=== PATIENT | male | born 1980 | race Caucasian/White ===

== ENCOUNTER 2020-06-15 18:30 | Emergency (ER) | payer SELFPAY ==
[2020-06-15] MEDS ORDERED: MVI, Adult with Vitamin K 10 ML, Folic Acid 1 MG, Thiamine 100 MG in Lactated Ringers 1... IV ONE ×4 (18:58)
[2020-06-15] MEDS ORDERED: Pantoprazole 40 MG Vial IVPUSH ONE (19:02)
--- NOTE | 2020-06-15 19:03 | EDM.PDOC ---
ED HPI GENERAL MEDICAL PROBLEM - General Chief Complaint: General Stated Complaint: BLOOD IN THROAT/DIZZY Time Seen by Provider: 06/15/20 19:01 Source of Information: Reports: Patient, Family History Limitations: Reports: No Limitations - History of Present Illness INITIAL COMMENTS - FREE TEXT/NARRATIVE: been coughing up blood and been drinking daily past 5 months. Lower Abdomen Pain Score (Numeric/FACES): 6 - Related Data Allergies Allergy/AdvReac Type Severity Reaction Status Date / Time No Known Allergies Allergy Verified 06/15/20 19:32 Home Meds: Home Meds . [No Known Home Meds] 06/15/20 [History] ED ROS GENERAL - Review of Systems Review Of Systems: Comprehensive ROS is negative, except as noted in HPI. ED EXAM, GENERAL - Physical Exam Exam: See Below Exam Limited By: No Limitations General Appearance: Alert, WD/WN, Mild Distress, Other (upset) Ears: Hearing Grossly Normal Throat/Mouth: Normal Voice, No Airway Compromise Head: Atraumatic Neck: Non-Tender, Full Range of Motion Respiratory/Chest: No Respiratory Distress Cardiovascular: Regular Rate, Rhythm GI/Abdominal: Soft, Non-Tender Neurological: Alert, Oriented, Normal Cognition, Normal Gait, No Motor/Sensory Deficits Psychiatric: Flat Affect Skin Exam: Warm, Dry, Normal Color Lymphatic: No Adenopathy Course - Vital Signs Last Recorded V/S: Last Vital Signs Temp 36.6 C 06/15/20 18:50 Pulse 87 06/15/20 18:50 Resp 19 06/15/20 18:50 BP 154/81 H 06/15/20 18:50 Pulse Ox 98 06/15/20 18:50 - Orders/Labs/Meds Orders: Active Orders 24 hr Category Date Time Status MVI, Adult with Vitamin K [Infuvite Adult] 10 ml Med 06/15/20 18:58 Active Folic Acid 1 mg Thiamine [Vitamin B-1] 100 mg Lactated Ringers [Ringers, Lactated] 1,000 ml IV ONETIME Medication Orders Multivitamins/Minerals 10 ml/Folic Acid 1 mg/ Thiamine HCl 100 mg/ Lactated Ringer's 1,011.2 mls @ 999 mls/hr IV ONETIME ONE Stop: 06/15/20 19:58 Last Admin: 06/15/20 19:13 Dose: 999 mls/hr Documented by: ALTA Labs: Laboratory Tests 06/15/20 06/15/20 Range/Units 18:57 18:57 WBC 7.5 (5.0-10.0) 10^3/uL RBC 4.43 L (4.6-6.2) 10^6/uL Hgb 14.3 (14.0-18.0) g/dL Hct 41.3 (40.0-54.0) % MCV 93.2 (80-100) fL MCH 32.3 (27.0-34.0) pg MCHC 34.6 (33.0-35.0) g/dL Plt Count 110 L (150-450) 10^3/uL Neut % (Auto) 64.1 (42.2-75.2) % Lymph % (Auto) 15.7 L (20.5-50.1) % [place] % (Auto) 16.1 H (2-8) % Eos % (Auto) 3.2 H (1.0-3.0) % Baso % (Auto) 0.9 (0.0-1.0) % Sodium 135 L (136-145) mmol/L Potassium 3.0 L (3.5-5.1) mmol/L Chloride 97 L (98-107) mmol/L Carbon Dioxide 33 H (21-32) mmol/L Anion Gap 8.0 (7-13) mEq/L BUN 6 L (7-18) mg/dL Creatinine 0.62 L (0.70-1.30) mg/dL Est Cr Clr Drug Dosing TNP Estimated GFR (MDRD) > 60 BUN/Creatinine Ratio 9.7 (No establ ref range) Glucose 121 H (74-99) mg/dL Calcium 8.3 L (8.5-10.1) mg/dL Total Bilirubin 2.1 H (0.2-1.0) mg/dL AST 221 H (15-37) U/L ALT 115 H (16-63) U/L Alkaline Phosphatase 192 H (46-116) U/L Total Protein 8.0 (6.4-8.2) g/dL Albumin 3.2 L (3.4-5.0) g/dL Globulin 4.8 Albumin/Globulin Ratio 0.67 Ethyl Alcohol < 3 (0) mg/dL Meds: Medications Generic Name Dose Route Start Last Admin Trade Name Freq PRN Reason Stop Dose Admin Multivitamins/Minerals 10 ml/ 1,011.2 mls @ 999 mls/hr 06/15/20 18:58 06/15/20 19:13 Folic Acid 1 mg/ Thiamine HCl IV 06/15/20 19:58 999 mls/hr 100 mg/ Lactated Ringer's ONETIME ONE Administration Discontinued Medications Generic Name Dose Route Start Last Admin Trade Name Twin PRN Reason Stop Dose Admin Pantoprazole Sodium 40 mg 06/15/20 19:02 06/15/20 19:10 Protonix Iv IVPUSH 06/15/20 19:03 40 mg ONETIME ONE Administration - Re-Assessments/Exams Free Text/Narrative Re-Assessment/Exam: 06/15/20 19:51 results discussed with pt and brother. pt feels good now. Departure - Departure Time of Disposition: 19:52 Disposition: Home, Self-Care 01 Condition: Good Clinical Impression: Alcoholic liver disease, unspecified, Hep C w/o coma, chronic, Alcohol abuse, Elevated LFTs - Discharge Information Instructions: Alcoholic Liver Disease, [id number] Forms: ED Department Discharge Additional Instructions: 1) avoid alcohol 2) follow up with clinic or seek treatment 3) recheck as needed Sepsis Event Note (ED) - Focused Exam Vital Signs: Vital Signs Temp Pulse Resp BP Pulse Ox 06/15/20 18:50 36.6 C 87 19 154/81 H 98 - My Orders Last 24 Hours: My Active Orders 06/15/20 18:58 MVI, Adult with Vitamin K [Infuvite Adult] 10 ml Folic Acid 1 mg Thiamine [Vitamin B-1] 100 mg Lactated Ringers [Ringers, Lactated] 1,000 ml IV ONETIME - Assessment/Plan Last 24 Hours: My Active Orders 06/15/20 18:58 MVI, Adult with Vitamin K [Infuvite Adult] 10 ml Folic Acid 1 mg Thiamine [Vitamin B-1] 100 mg Lactated Ringers [Ringers, Lactated] 1,000 ml IV ONETIME
[2020-06-15 19:25] LABS: CHLORIDE,CL 97 mmol/L (98-107); SODIUM,NA 135 mmol/L (136-145)
== END 2020-06-15 19:58 | disposition home or self-care (01) ==
LOC: DL.ED 18:30
DX: K70.9 Alcoholic liver disease, unspecified (principal); F10.10 Alcohol abuse, uncomplicated; B18.2 Chronic viral hepatitis C; R79.89 Other specified abnormal findings of blood chemistry
CPT/HCPCS: 36415; 80053; 80307; 85025; 96365; 96375; 99284; C9113; J3411; J7120; 99283; J3490

== ENCOUNTER 2020-07-13 12:04 | Observation (INO) | payer SELFPAY ==
--- NOTE | 2020-07-13 12:03 | EDM.PDOC ---
ED [facility] GENERAL MEDICAL PROBLEM - General Stated Complaint: [id number] MED CLEARENCE Time Seen by Provider: 07/13/20 11:45 Source of Information: Reports: Patient, Family (brother) History Limitations: Reports: Altered Mental Status, Intoxication (self admission) - History of Present Illness INITIAL COMMENTS - FREE TEXT/NARRATIVE: This 40 yo male patient was brought to the ED by his brother due to excessive drinking. The patient does not know when the last day that he did not drink alcohol. The patient also admits to using drugs. The patient was actually seen by the [facility] [place] and referred to the ED for medical clearance. Onset: Unknown/Unsure Duration: Constant Location: Reports: Generalized Quality: Reports: Other Severity: Severe Improves with: Reports: None Worsens with: Reports: None Context: Reports: Other Associated Symptoms: Reports: No Other Symptoms Abdominal Pain Score (Numeric/FACES): 10 - Related Data Allergies Allergy/AdvReac Type Severity Reaction Status Date / Time No Known Allergies Allergy Verified 07/13/20 12:10 Home Meds: Home Meds . [No Known Home Meds] 06/15/20 [History] Social & Family History - Caffeine Use Caffeine Use: Reports: Energy Drinks ED ROS GENERAL - Review of Systems Review Of Systems: Comprehensive ROS is negative, except as noted in HPI. ED EXAM, GENERAL - Physical Exam Exam: See Below Exam Limited By: Intoxication General Appearance: Alert, WD/WN, Moderate Distress Eye Exam: Bilateral Eye: EOMI, Normal Inspection, PERRL Ears: Normal External Exam, Normal Canal, Hearing Grossly Normal, Normal TMs Nose: Normal Inspection, Normal Mucosa, No Blood Throat/Mouth: Normal Teeth, Normal Gums, Normal Oropharynx, Normal Voice, No Airway Compromise, Other (healing wound to the inside of his lower lip) Head: Other (contusion to the left eye due to a fall within the past week) Neck: Normal Inspection, Supple, Non-Tender, Full Range of Motion Respiratory/Chest: No Respiratory Distress, Lungs Clear, Normal Breath Sounds, No Accessory Muscle Use, Chest Non-Tender Cardiovascular: Normal Peripheral Pulses, Regular Rate, Rhythm, No Edema, No Gallop, No JVD, No Murmur, No Rub GI/Abdominal: Normal Bowel Sounds, Soft, Non-Tender, No Organomegaly, No Distention, No Abnormal Bruit, No Mass (Male) Exam: Deferred Rectal (Males) Exam: Deferred Back Exam: Normal Inspection, Full Range of Motion, NT Extremities: Normal Inspection, Normal Range of Motion, Non-Tender, Normal Capillary Refill, No Pedal Edema Neurological: Alert, CN II-XII Intact, Normal Gait, Disoriented Psychiatric: Depressed Mood, Flat Affect, Tearful Skin Exam: Warm, Dry, Intact, Normal Color, No Rash Lymphatic: No Adenopathy Course - Vital Signs Last Recorded V/S: Last Vital Signs Temp 36.8 C 07/13/20 12:02 Pulse 104 H 07/13/20 12:02 Resp 20 07/13/20 12:02 BP 140/96 H 07/13/20 12:02 Pulse Ox 98 07/13/20 12:02 - Orders/Labs/Meds Orders: Active Orders 24 hr Category Date Time Status Admission Diagnosis [ADT] Urgent ADT 07/13/20 13:18 Ordered Admission Status [Patient Status] [ADT] Routine ADT 07/13/20 13:18 Ordered Labs: Laboratory Tests 07/13/20 07/13/20 07/13/20 Range/Units 12:14 12:14 12:14 WBC 10.8 H (5.0-10.0) 10^3/uL RBC 4.30 L (4.6-6.2) 10^6/uL Hgb 13.7 L (14.0-18.0) g/dL Hct 41.1 (40.0-54.0) % MCV 95.6 (80-100) fL MCH 31.9 (27.0-34.0) pg MCHC 33.3 (33.0-35.0) g/dL Plt Count 187 D (150-450) 10^3/uL Neut % (Auto) 70.2 (42.2-75.2) % Lymph % (Auto) 13.1 L (20.5-50.1) % [place] % (Auto) 7.9 (2-8) % Eos % (Auto) 7.0 H (1.0-3.0) % Baso % (Auto) 1.8 H (0.0-1.0) % Add Manual Diff Yes Neutrophils % (Manual) 68 (42-75) % Band Neutrophils % 1 % Lymphocytes % (Manual) 18 L (20-50) % Monocytes % (Manual) 5 (2-8) % Eosinophils % (Manual) 7 H (1-3) % Basophils % (Manual) 1 Sodium 142 (136-145) mmol/L Potassium 3.2 L (3.5-5.1) mmol/L Chloride 106 (98-107) mmol/L Carbon Dioxide 28 (21-32) mmol/L Anion Gap 11.2 (7-13) mEq/L BUN 5 L (7-18) mg/dL Creatinine 0.68 L (0.70-1.30) mg/dL Est Cr Clr Drug Dosing 156.88 mL/min Estimated GFR (MDRD) > 60 BUN/Creatinine Ratio 7.4 (No establ ref range) Glucose 153 H (74-99) mg/dL Calcium 7.2 L (8.5-10.1) mg/dL Magnesium 1.6 L (1.8-2.4) mg/dL Total Bilirubin 0.7 (0.2-1.0) mg/dL AST 307 H (15-37) U/L ALT 153 H (16-63) U/L Alkaline Phosphatase 207 H (46-116) U/L Ammonia 50 H (11-32) umol/L Total Protein 7.5 (6.4-8.2) g/dL Albumin 2.6 L (3.4-5.0) g/dL Globulin 4.9 Albumin/Globulin Ratio 0.53 Amylase 60 (25-115) U/L Lipase 518 H (73-393) U/L Urine Color (YELLOW) Urine Appearance (CLEAR) Urine pH (5.0-9.0) Ur Specific [place] (1.005-1.030) Urine Protein (NEGATIVE) Urine Glucose (UA) (NEGATIVE) Urine Ketones (NEGATIVE) Urine Occult Blood (NEGATIVE) Urine Nitrite (NEGATIVE) Urine Bilirubin (NEGATIVE) Urine Urobilinogen (0.2-1.0) mg/dL Ur Leukocyte Esterase (NEGATIVE) Urine Opiates Screen (NEGATIVE) Ur Oxycodone Screen (NEGATIVE) Urine Methadone Screen (NEGATIVE) Acetaminophen 0 L (10-30 (Therapeutic)) ug/mL Ur Barbiturates Screen (NEGATIVE) U Tricyclic Antidepress (NEGATIVE) Ur Phencyclidine Scrn (NEGATIVE) Ur Amphetamine Screen (NEGATIVE) U Methamphetamines Scrn (NEGATIVE) Urine MDMA Screen (NEGATIVE) U Benzodiazepines Scrn (NEGATIVE) Urine Cocaine Screen (NEGATIVE) U Marijuana (THC) Screen (NEGATIVE) Ethyl Alcohol 298 (0) mg/dL 07/13/20 07/13/20 Range/Units 12:21 12:21 WBC (5.0-10.0) 10^3/uL RBC (4.6-6.2) 10^6/uL Hgb (14.0-18.0) g/dL Hct (40.0-54.0) % MCV (80-100) fL MCH (27.0-34.0) pg MCHC (33.0-35.0) g/dL Plt Count (150-450) 10^3/uL Neut % (Auto) (42.2-75.2) % Lymph % (Auto) (20.5-50.1) % [place] % (Auto) (2-8) % Eos % (Auto) (1.0-3.0) % Baso % (Auto) (0.0-1.0) % Add Manual Diff Neutrophils % (Manual) (42-75) % Band Neutrophils % % Lymphocytes % (Manual) (20-50) % Monocytes % (Manual) (2-8) % Eosinophils % (Manual) (1-3) % Basophils % (Manual) Sodium (136-145) mmol/L Potassium (3.5-5.1) mmol/L Chloride (98-107) mmol/L Carbon Dioxide (21-32) mmol/L Anion Gap (7-13) mEq/L BUN (7-18) mg/dL Creatinine (0.70-1.30) mg/dL Est Cr Clr Drug Dosing mL/min Estimated GFR (MDRD) BUN/Creatinine Ratio (No establ ref range) Glucose (74-99) mg/dL Calcium (8.5-10.1) mg/dL Magnesium (1.8-2.4) mg/dL Total Bilirubin (0.2-1.0) mg/dL AST (15-37) U/L ALT (16-63) U/L Alkaline Phosphatase (46-116) U/L Ammonia (11-32) umol/L Total Protein (6.4-8.2) g/dL Albumin (3.4-5.0) g/dL Globulin Albumin/Globulin Ratio Amylase (25-115) U/L Lipase (73-393) U/L Urine Color Yellow (YELLOW) Urine Appearance Clear (CLEAR) Urine pH 6.5 (5.0-9.0) Ur Specific [place] >= 1.030 (1.005-1.030) Urine Protein Negative (NEGATIVE) Urine Glucose (UA) Negative (NEGATIVE) Urine Ketones Negative (NEGATIVE) Urine Occult Blood Negative (NEGATIVE) Urine Nitrite Negative (NEGATIVE) Urine Bilirubin Negative (NEGATIVE) Urine Urobilinogen 2.0 H (0.2-1.0) mg/dL Ur Leukocyte Esterase Negative (NEGATIVE) Urine Opiates Screen Negative (NEGATIVE) Ur Oxycodone Screen Negative (NEGATIVE) Urine Methadone Screen Negative (NEGATIVE) Acetaminophen (10-30 (Therapeutic)) ug/mL Ur Barbiturates Screen Negative (NEGATIVE) U Tricyclic Antidepress Negative (NEGATIVE) Ur Phencyclidine Scrn Negative (NEGATIVE) Ur Amphetamine Screen Negative (NEGATIVE) U Methamphetamines Scrn Positive H (NEGATIVE) Urine MDMA Screen Negative (NEGATIVE) U Benzodiazepines Scrn Negative (NEGATIVE) Urine Cocaine Screen Negative (NEGATIVE) U Marijuana (THC) Screen Positive H (NEGATIVE) Ethyl Alcohol (0) mg/dL Departure - Departure Time of Disposition: 13:22 Disposition: Refer to Observation Clinical Impression: Alcohol abuse, Alcoholic liver disease, unspecified - Discharge Information *PRESCRIPTION DRUG MONITORING PROGRAM REVIEWED*: No *COPY OF PRESCRIPTION DRUG MONITORING REPORT IN PATIENT JUSTA: No Care Plan Goals: Discussed the patient's history, examination and lab results with Dr. Lopez. Dr. Lopez accepted the patient for continued evaluation and management as an observation patient at [facility] in [place]. Rosa Isela Heydi ([employer] [place]) agreed to come to the hospital tomorrow for further evaluation and treatment. Sepsis Event Note (ED) - Focused Exam Vital Signs: Vital Signs Temp Pulse Resp BP Pulse Ox 07/13/20 12:02 36.8 C 104 H 20 140/96 H 98 - My Orders Last 24 Hours: My Active Orders 07/13/20 13:18 Admission Diagnosis [ADT] Urgent Admission Status [Patient Status] [ADT] Routine - Assessment/Plan Last 24 Hours: My Active Orders 07/13/20 13:18 Admission Diagnosis [ADT] Urgent Admission Status [Patient Status] [ADT] Routine
[2020-07-13 12:43] LABS: ANION GAP 11.2 mEq/L (7-13); CHLORIDE,CL 106 mmol/L (98-107); SODIUM,NA 142 mmol/L (136-145)
[2020-07-13 12:52] LABS: ACETAMINOPHEN 0 ug/mL (10-30 (Therapeutic))
[2020-07-13] MEDS ORDERED: Ondansetron 4 MG/2 ML SDV IVPUSH PRN (13:57)
[2020-07-13] MEDS ORDERED: oxyCODONE 5 MG Tab PO PRN (13:57)
[2020-07-13] MEDS ORDERED: Acetaminophen 325 MG Tab PO PRN (13:57)
[2020-07-13] MEDS ORDERED: Sodium Chloride 0.9% 10 ML Syringe FLUSH PRN (13:57)
[2020-07-13] MEDS ORDERED: Flumazenil 0.1 MG/ML 5 ML MDV IVPUSH PRN (14:00)
[2020-07-13] MEDS ORDERED: LORazepam 2 MG/ML SDV IVPUSH PRN (14:00)
[2020-07-13] MEDS ORDERED: NS + KCl 20mEq/L 1,000 ML IV SCH (14:00)
--- NOTE | 2020-07-13 14:25 | PCM.HP ---
H&P History of Present Illness - General Date of Service: 07/13/20 Admit Problem/Dx: Admission Diagnosis/Problem Admission Diagnosis/Problem Alcohol abuse Source of Information: Patient, Provider - History of Present Illness Initial Comments - Free Text/Narative: 40-year-old with a history of hepatitis C, heavy alcohol use, IV drug use with amphetamine, marijuana use. As he has been drinking heavily, drinking 99 proof alcohol about a liter and a half daily. On the day of admission the patient underwent and requested alcohol treatment. He was referred to the emergency room for evaluation. He was noted to have high alcohol level. He says he has had diarrhea in the past few days. Multiple loose bowel movements associated with abdominal distention and moderate pain. No associated nausea or vomiting. No chest pain, no shortness of breath, no known COVID-19 exposure Abdominal Pain Score (Numeric/FACES): 10 - Related Data Allergies/Adverse Reactions: Allergies Allergy/AdvReac Type Severity Reaction Status Date / Time No Known Allergies Allergy Verified 07/13/20 12:10 Home Medications: Home Meds . [No Known Home Meds] 06/15/20 [History] Past Medical History HEENT History: Reports: None, Hard of Hearing Other HEENT History: left ear infection bad Cardiovascular History: Reports: None, Hypertension Respiratory History: Reports: None Gastrointestinal History: Reports: None Genitourinary History: Reports: None Musculoskeletal History: Reports: Arthritis Neurological History: Reports: None Psychiatric History: Reports: ADD, ADHD, Addiction, Bipolar, Depression, Learning Disability Endocrine/Metabolic History: Reports: None Hematologic History: Reports: None Immunologic History: Reports: None Oncologic (Cancer) History: Reports: None Dermatologic History: Reports: None - Infectious Disease History Infectious Disease History: Reports: Chicken Pox, Hepatitis C - Past Surgical History Head Surgeries/Procedures: Reports: None Social & Family History - Tobacco Use Smoking Status *Q: Current Every Day Smoker Years of Tobacco use: 20 Packs/Tins Daily: 3 Second Hand Smoke Exposure: No - Caffeine Use Caffeine Use: Reports: Energy Drinks - Recreational Drug Use Recreational Drug Use: Yes Recreational Drug Type: Reports: Marijuana/Hashish, Methamphetamine H&P Review of Systems - Review of Systems: Review Of Systems: See Below General: Denies: Fever Pulmonary: Denies: Shortness of Breath Cardiovascular: Denies: Chest Pain, Edema Gastrointestinal: Reports: Abdominal Pain, Diarrhea, Distension. Denies: Black Stool, Bloody Stool Psychiatric: Denies: Confusion Neurological: Denies: Dizziness Exam - Exam Exam: See Below - Vital Signs Vital Signs: Last Vital Signs Temp 98.4 F 07/13/20 13:57 Pulse 75 07/13/20 13:57 Resp 20 07/13/20 13:57 BP 153/95 H 07/13/20 13:57 Pulse Ox 99 07/13/20 13:57 Weight: 169 lb 9.6 oz - Exam General: Alert, Oriented Neck: Supple Lungs: Clear to Auscultation, Normal Respiratory Effort Cardiovascular: Regular Rate, Regular Rhythm GI/Abdominal Exam: Normal Bowel Sounds, Distended, Tender (Diffuse mild), Other (Tympanic sounds). No: Guarding (Mildly), Rigid, Rebound Extremities: No Pedal Edema Skin: Warm, Dry Neuro Extensive - Mental Status: Alert, Oriented x3 Psychiatric: Alert, Normal Affect, Normal Mood - Patient Data Lab Results Last 24 hrs: Laboratory Results - last 24 hr 07/13/20 07/13/20 07/13/20 Range/Units 12:14 12:14 12:14 WBC 10.8 H (5.0-10.0) 10^3/uL RBC 4.30 L (4.6-6.2) 10^6/uL Hgb 13.7 L (14.0-18.0) g/dL Hct 41.1 (40.0-54.0) % MCV 95.6 (80-100) fL MCH 31.9 (27.0-34.0) pg MCHC 33.3 (33.0-35.0) g/dL Plt Count 187 D (150-450) 10^3/uL Neut % (Auto) 70.2 (42.2-75.2) % Lymph % (Auto) 13.1 L (20.5-50.1) % [place] % (Auto) 7.9 (2-8) % Eos % (Auto) 7.0 H (1.0-3.0) % Baso % (Auto) 1.8 H (0.0-1.0) % Add Manual Diff Yes Neutrophils % (Manual) 68 (42-75) % Band Neutrophils % 1 % Lymphocytes % (Manual) 18 L (20-50) % Monocytes % (Manual) 5 (2-8) % Eosinophils % (Manual) 7 H (1-3) % Basophils % (Manual) 1 Sodium 142 (136-145) mmol/L Potassium 3.2 L (3.5-5.1) mmol/L Chloride 106 (98-107) mmol/L Carbon Dioxide 28 (21-32) mmol/L Anion Gap 11.2 (7-13) mEq/L BUN 5 L (7-18) mg/dL Creatinine 0.68 L (0.70-1.30) mg/dL Est Cr Clr Drug Dosing 156.88 mL/min Estimated GFR (MDRD) > 60 BUN/Creatinine Ratio 7.4 (No establ ref range) Glucose 153 H (74-99) mg/dL Calcium 7.2 L (8.5-10.1) mg/dL Magnesium 1.6 L (1.8-2.4) mg/dL Total Bilirubin 0.7 (0.2-1.0) mg/dL AST 307 H (15-37) U/L ALT 153 H (16-63) U/L Alkaline Phosphatase 207 H (46-116) U/L Ammonia 50 H (11-32) umol/L Total Protein 7.5 (6.4-8.2) g/dL Albumin 2.6 L (3.4-5.0) g/dL Globulin 4.9 Albumin/Globulin Ratio 0.53 Amylase 60 (25-115) U/L Lipase 518 H (73-393) U/L Urine Color (YELLOW) Urine Appearance (CLEAR) Urine pH (5.0-9.0) Ur Specific [place] (1.005-1.030) Urine Protein (NEGATIVE) Urine Glucose (UA) (NEGATIVE) Urine Ketones (NEGATIVE) Urine Occult Blood (NEGATIVE) Urine Nitrite (NEGATIVE) Urine Bilirubin (NEGATIVE) Urine Urobilinogen (0.2-1.0) mg/dL Ur Leukocyte Esterase (NEGATIVE) Urine Opiates Screen (NEGATIVE) Ur Oxycodone Screen (NEGATIVE) Urine Methadone Screen (NEGATIVE) Acetaminophen 0 L (10-30 (Therapeutic)) ug/mL Ur Barbiturates Screen (NEGATIVE) U Tricyclic Antidepress (NEGATIVE) Ur Phencyclidine Scrn (NEGATIVE) Ur Amphetamine Screen (NEGATIVE) U Methamphetamines Scrn (NEGATIVE) Urine MDMA Screen (NEGATIVE) U Benzodiazepines Scrn (NEGATIVE) Urine Cocaine Screen (NEGATIVE) U Marijuana (THC) Screen (NEGATIVE) Ethyl Alcohol 298 (0) mg/dL 07/13/20 07/13/20 Range/Units 12:21 12:21 WBC (5.0-10.0) 10^3/uL RBC (4.6-6.2) 10^6/uL Hgb (14.0-18.0) g/dL Hct (40.0-54.0) % MCV (80-100) fL MCH (27.0-34.0) pg MCHC (33.0-35.0) g/dL Plt Count (150-450) 10^3/uL Neut % (Auto) (42.2-75.2) % Lymph % (Auto) (20.5-50.1) % [place] % (Auto) (2-8) % Eos % (Auto) (1.0-3.0) % Baso % (Auto) (0.0-1.0) % Add Manual Diff Neutrophils % (Manual) (42-75) % Band Neutrophils % % Lymphocytes % (Manual) (20-50) % Monocytes % (Manual) (2-8) % Eosinophils % (Manual) (1-3) % Basophils % (Manual) Sodium (136-145) mmol/L Potassium (3.5-5.1) mmol/L Chloride (98-107) mmol/L Carbon Dioxide (21-32) mmol/L Anion Gap (7-13) mEq/L BUN (7-18) mg/dL Creatinine (0.70-1.30) mg/dL Est Cr Clr Drug Dosing mL/min Estimated GFR (MDRD) BUN/Creatinine Ratio (No establ ref range) Glucose (74-99) mg/dL Calcium (8.5-10.1) mg/dL Magnesium (1.8-2.4) mg/dL Total Bilirubin (0.2-1.0) mg/dL AST (15-37) U/L ALT (16-63) U/L Alkaline Phosphatase (46-116) U/L Ammonia (11-32) umol/L Total Protein (6.4-8.2) g/dL Albumin (3.4-5.0) g/dL Globulin Albumin/Globulin Ratio Amylase (25-115) U/L Lipase (73-393) U/L Urine Color Yellow (YELLOW) Urine Appearance Clear (CLEAR) Urine pH 6.5 (5.0-9.0) Ur Specific [place] >= 1.030 (1.005-1.030) Urine Protein Negative (NEGATIVE) Urine Glucose (UA) Negative (NEGATIVE) Urine Ketones Negative (NEGATIVE) Urine Occult Blood Negative (NEGATIVE) Urine Nitrite Negative (NEGATIVE) Urine Bilirubin Negative (NEGATIVE) Urine Urobilinogen 2.0 H (0.2-1.0) mg/dL Ur Leukocyte Esterase Negative (NEGATIVE) Urine Opiates Screen Negative (NEGATIVE) Ur Oxycodone Screen Negative (NEGATIVE) Urine Methadone Screen Negative (NEGATIVE) Acetaminophen (10-30 (Therapeutic)) ug/mL Ur Barbiturates Screen Negative (NEGATIVE) U Tricyclic Antidepress Negative (NEGATIVE) Ur Phencyclidine Scrn Negative (NEGATIVE) Ur Amphetamine Screen Negative (NEGATIVE) U Methamphetamines Scrn Positive H (NEGATIVE) Urine MDMA Screen Negative (NEGATIVE) U Benzodiazepines Scrn Negative (NEGATIVE) Urine Cocaine Screen Negative (NEGATIVE) U Marijuana (THC) Screen Positive H (NEGATIVE) Ethyl Alcohol (0) mg/dL Result Diagrams: 07/13/20 12:14 07/13/20 12:14 - Problem List (1) Alcohol intoxication SNOMED Code(s): 16861883 ICD Code: F10.929 - ALCOHOL USE, UNSPECIFIED WITH INTOXICATION, UNSPECIFIED Status: Acute Current Visit: Yes (2) Alcohol abuse SNOMED Code(s): 62025308 ICD Code: F10.10 - ALCOHOL ABUSE, UNCOMPLICATED Status: Acute Current Visit: No (3) Alcoholic liver disease, unspecified SNOMED Code(s): 76654683 ICD Code: K70.9 - ALCOHOLIC LIVER DISEASE, UNSPECIFIED Status: Acute Current Visit: No (4) Elevated LFTs SNOMED Code(s): 035417771, 201862867 ICD Code: R79.89 - OTHER SPECIFIED ABNORMAL FINDINGS OF BLOOD CHEMISTRY Status: Acute Current Visit: No (5) Hep C w/o coma, chronic SNOMED Code(s): 461157445, 292731010 ICD Code: B18.2 - CHRONIC VIRAL HEPATITIS C Status: Acute Current Visit: No Problem List Initiated/Reviewed/Updated: Yes Orders Last 24hrs: Active Orders 24 hr Category Date Time Status Admission Diagnosis [ADT] Urgent ADT 07/13/20 13:18 Ordered Admission Status [Patient Status] [ADT] Routine ADT 07/13/20 13:18 Active Ambulate [RC] PER UNIT ROUTINE Care 07/13/20 13:57 Active Antiembolic Devices [RC] PER UNIT ROUTINE Care 07/13/20 13:58 Active Oxygen Therapy [RC] PRN Care 07/13/20 13:57 Active Peripheral IV Care [RC] 09,21 Care 07/13/20 13:58 Active Up With Assistance [RC] ASDIRECTED Care 07/13/20 13:57 Active VTE/DVT Education [RC] PER UNIT ROUTINE Care 07/13/20 13:57 Active Vital Signs [RC] Q4H Care 07/13/20 13:57 Active Regular Diet [DIET] Diet 07/13/20 Dinner Active BASIC METABOLIC PANEL,BMP [CHEM] AM Lab 07/14/20 05:15 Ordered CBC WITH AUTO DIFF [HEME] AM Lab 07/14/20 05:15 Ordered HEPATIC FUNCTION PANEL,HFP [CHEM] AM Lab 07/14/20 05:11 Ordered Acetaminophen [Tylenol] Med 07/13/20 13:57 Active 650 mg PO Q4H PRN Folic Acid Med 07/13/20 14:00 Active 1 mg PO DAILY Heparin Sodium Med 07/13/20 14:00 Active 5,000 units SUBCUT Q8HR Ibuprofen [Motrin] Med 07/13/20 13:57 Active 600 mg PO Q6H PRN LORazepam [Ativan] Med 07/13/20 14:00 Active See Protocol IVPUSH TITRATE PRN LORazepam [Ativan] Med 07/13/20 14:01 Active See Protocol PO TITRATE PRN Multivitamins,Therapeutic [Thera] Med 07/13/20 14:00 Active 1 each PO DAILY NS + KCl 20mEq/L [Normal Saline with 20 mEq KCl] 1,000 Med 07/13/20 14:00 Ac tive ml IV ASDIRECTED Ondansetron [Zofran ODT] Med 07/13/20 13:57 Active 4 mg PO Q6H PRN Ondansetron [Zofran] Med 07/13/20 13:57 Active 4 mg IVPUSH Q6H PRN Potassium Chloride [Klor-Con 10] Med 07/13/20 14:00 Active 40 meq PO BIDMEALS Sodium Chloride 0.9% [Saline Flush] Med 07/13/20 13:57 Active 10 ml FLUSH ASDIRECTED PRN Temazepam [Restoril] Med 07/13/20 21:00 Active 15 mg PO BEDTIME PRN Thiamine [Vitamin B-1] Med 07/13/20 14:00 Active 100 mg PO DAILY flumazeniL [Romazicon] Med 07/13/20 14:00 Active 0.2 mg IVPUSH ASDIRECTED PRN oxyCODONE Med 07/13/20 13:57 Active 5 mg PO Q4H PRN Antiembolic Hose [OM.PC] Per Unit Routine Oth 07/13/20 13:57 Ordered Peripheral IV Insertion Adult [OM.PC] Routine Oth 07/13/20 13:57 Ordered Resuscitation Status Routine Resus Stat 07/13/20 13:57 Ordered Medication Orders Acetaminophen (Tylenol) 650 mg PO Q4H PRN PRN Reason: Pain (Mild 1-3)/fever Flumazenil (Romazicon) 0.2 mg IVPUSH ASDIRECTED PRN PRN Reason: Respiratory Depression Folic Acid (Folic Acid) 1 mg PO DAILY [facility] Heparin Sodium (Porcine) (Heparin Sodium) 5,000 units SUBCUT Q8HR [facility] Potassium Chloride/Sodium Chloride (Normal Saline With 20 Meq Kcl) 1,000 mls @ 150 mls/hr IV ASDIRECTED [facility] Ibuprofen (Motrin) 600 mg PO Q6H PRN PRN Reason: Pain (moderate 4-6) Lorazepam (Ativan) 0 mg IVPUSH TITRATE PRN; Protocol PRN Reason: [facility] protocol Lorazepam (Ativan) 0 mg PO TITRATE PRN; Protocol PRN Reason: [facility] protocol Multivitamins (Thera) 1 each PO DAILY [facility] Ondansetron HCl (Zofran Odt) 4 mg PO Q6H PRN PRN Reason: nausea, able to take PO Ondansetron HCl (Zofran) 4 mg IVPUSH Q6H PRN PRN Reason: Nausea/Vomiting Oxycodone HCl (Oxycodone) 5 mg PO Q4H PRN PRN Reason: Pain (severe 7-10) Potassium Chloride (Klor-Con 10) 40 meq PO BIDMEALS [facility] Stop: 07/13/20 18:01 Sodium Chloride (Saline Flush) 10 ml FLUSH ASDIRECTED PRN PRN Reason: Keep Vein Open Temazepam (Restoril) 15 mg PO BEDTIME PRN PRN Reason: Sleep Thiamine HCl (Vitamin B-1) 100 mg PO DAILY [facility] Assessment/Plan Comment:: 40-year-old with a history of hepatitis C, heavy alcohol use, IV drug use with amphetamine, marijuana use. As he has been drinking heavily, drinking 99 proof alcohol about a liter and a half daily. On the day of admission the patient underwent and requested alcohol treatment. He was referred to the emergency room for evaluation. He was noted to have high alcohol level. 1. Acute Alcohol intoxication. We will give the patient IV fluids with IV electrolyte replacement. Follow electrolytes. 2. Chronic Alcohol addiction. Consult Social Work and evaluate for alcohol treatment programs. 3. Chronic alcohol use. Supplement thiamine, folate and multivitamin. 4. High Risk for alcohol withdrawal. Frequent evaluations and titration of Ativan per the [facility] protocol 5. diarrhea, abdominal distention will monitor give IVF, elyte replacement Will give PPI 6. Hypokalemia Well replace with oral supplement Recheck electrolytes and renal function in the morning 7. Deep venous thrombosis (DVT) prophylaxis will be with subcutaneous heparin.
[2020-07-13] MEDS: Potassium Chloride 10 MEQ Tab.ER PO SCH ×2 (14:58→18:15)
[2020-07-13] MEDS: Ibuprofen 600 MG Tab PO PRN (14:59)
[2020-07-13] MEDS: Thiamine 100 MG Tab PO SCH (14:59)
[2020-07-13] MEDS: Multivitamins,Therapeutic Tab PO SCH (14:59)
[2020-07-13] MEDS: Folic Acid 1 MG Tab PO SCH (14:59)
[2020-07-13] MEDS: Heparin Sodium 5,000 Units/ML Vial SUBCUT SCH ×3 (15:02→22:16)
[2020-07-13] MEDS ORDERED: Temazepam 15 MG Cap PO PRN (21:00)
[2020-07-13] MEDS ORDERED: Nicotine 21 MG/24 Hr Patch TRDERM ONE (22:35)
[2020-07-14] MEDS: Heparin Sodium 5,000 Units/ML Vial SUBCUT SCH ×2 (07:20→15:13)
[2020-07-14 07:22] LABS: CHLORIDE,CL 102 mmol/L (98-107); SODIUM,NA 136 mmol/L (136-145)
[2020-07-14] MEDS: Thiamine 100 MG Tab PO SCH (08:18)
[2020-07-14] MEDS: Folic Acid 1 MG Tab PO SCH (08:18)
[2020-07-14] MEDS: Multivitamins,Therapeutic Tab PO SCH (08:18)
[2020-07-14] MEDS: Ondansetron 4 MG Tab.DIS PO PRN ×2 (08:18→15:12)
[2020-07-14] MEDS: Ibuprofen 600 MG Tab PO PRN ×2 (08:19→17:56)
[2020-07-14] MEDS: LORazepam 0.5 MG Tab PO PRN ×2 (08:28→15:12)
[2020-07-14] MEDS ORDERED: Nicotine 21 MG/24 Hr Patch TRDERM SCH (09:00)
--- NOTE | 2020-07-14 12:24 | PCM.PN ---
- General Info Date of Service: 07/14/20 Admission Dx/Problem (Free Text): Admission Diagnosis/Problem Admission Diagnosis/Problem Alcohol abuse Subjective Update: Feeling well. No significant withdrawal symptoms. No further diarrhea. Tolerating food, no nausea or vomiting. Took Motrin earlier for abdominal pain. [place], no shortness of breath. - Review of Systems General: Denies: Fever, Weakness Cardiovascular: Denies: Chest Pain, Edema Gastrointestinal: Denies: Diarrhea Neurological: Denies: Confusion - Patient Data Vitals - Most Recent: Last Vital Signs Temp 98.4 F 07/14/20 11:47 Pulse 60 07/14/20 11:47 Resp 16 07/14/20 11:47 BP 119/65 07/14/20 11:47 Pulse Ox 99 07/14/20 11:47 Weight - Most Recent: 169 lb 9.6 oz I&O - Last 24 Hours: Intake & Output 07/13/20 07/14/20 07/14/20 22:59 06:59 14:59 Intake Total 675 780 240 Balance 675 780 240 Lab Results Last 24 Hours: Laboratory Results - last 24 hr 07/13/20 07/13/20 07/13/20 Range/Units 12:14 12:14 12:14 WBC 10.8 H (5.0-10.0) 10^3/uL RBC 4.30 L (4.6-6.2) 10^6/uL Hgb 13.7 L (14.0-18.0) g/dL Hct 41.1 (40.0-54.0) % MCV 95.6 (80-100) fL MCH 31.9 (27.0-34.0) pg MCHC 33.3 (33.0-35.0) g/dL Plt Count 187 D (150-450) 10^3/uL Neut % (Auto) 70.2 (42.2-75.2) % Lymph % (Auto) 13.1 L (20.5-50.1) % [place] % (Auto) 7.9 (2-8) % Eos % (Auto) 7.0 H (1.0-3.0) % Baso % (Auto) 1.8 H (0.0-1.0) % Add Manual Diff Yes Neutrophils % (Manual) 68 (42-75) % Band Neutrophils % 1 % Lymphocytes % (Manual) 18 L (20-50) % Monocytes % (Manual) 5 (2-8) % Eosinophils % (Manual) 7 H (1-3) % Basophils % (Manual) 1 Sodium 142 (136-145) mmol/L Potassium 3.2 L (3.5-5.1) mmol/L Chloride 106 (98-107) mmol/L Carbon Dioxide 28 (21-32) mmol/L Anion Gap 11.2 (7-13) mEq/L BUN 5 L (7-18) mg/dL Creatinine 0.68 L (0.70-1.30) mg/dL Est Cr Clr Drug Dosing 156.88 mL/min Estimated GFR (MDRD) > 60 BUN/Creatinine Ratio 7.4 (No establ ref range) Glucose 153 H (74-99) mg/dL Calcium 7.2 L (8.5-10.1) mg/dL Magnesium 1.6 L (1.8-2.4) mg/dL Total Bilirubin 0.7 (0.2-1.0) mg/dL Direct Bilirubin (0.0-0.2) mg/dL Indirect Bilirubin AST 307 H (15-37) U/L ALT 153 H (16-63) U/L Alkaline Phosphatase 207 H (46-116) U/L Ammonia 50 H (11-32) umol/L Total Protein 7.5 (6.4-8.2) g/dL Albumin 2.6 L (3.4-5.0) g/dL Globulin 4.9 Albumin/Globulin Ratio 0.53 Amylase 60 (25-115) U/L Lipase 518 H (73-393) U/L Urine Color (YELLOW) Urine Appearance (CLEAR) Urine pH (5.0-9.0) Ur Specific [place] (1.005-1.030) Urine Protein (NEGATIVE) Urine Glucose (UA) (NEGATIVE) Urine Ketones (NEGATIVE) Urine Occult Blood (NEGATIVE) Urine Nitrite (NEGATIVE) Urine Bilirubin (NEGATIVE) Urine Urobilinogen (0.2-1.0) mg/dL Ur Leukocyte Esterase (NEGATIVE) Urine Opiates Screen (NEGATIVE) Ur Oxycodone Screen (NEGATIVE) Urine Methadone Screen (NEGATIVE) Acetaminophen 0 L (10-30 (Therapeutic)) ug/mL Ur Barbiturates Screen (NEGATIVE) U Tricyclic Antidepress (NEGATIVE) Ur Phencyclidine Scrn (NEGATIVE) Ur Amphetamine Screen (NEGATIVE) U Methamphetamines Scrn (NEGATIVE) Urine MDMA Screen (NEGATIVE) U Benzodiazepines Scrn (NEGATIVE) Urine Cocaine Screen (NEGATIVE) U Marijuana (THC) Screen (NEGATIVE) Ethyl Alcohol 298 (0) mg/dL 07/13/20 07/13/20 07/14/20 Range/Units 12:21 12:21 05:50 WBC (5.0-10.0) 10^3/uL RBC (4.6-6.2) 10^6/uL Hgb (14.0-18.0) g/dL Hct (40.0-54.0) % MCV (80-100) fL MCH (27.0-34.0) pg MCHC (33.0-35.0) g/dL Plt Count (150-450) 10^3/uL Neut % (Auto) (42.2-75.2) % Lymph % (Auto) (20.5-50.1) % [place] % (Auto) (2-8) % Eos % (Auto) (1.0-3.0) % Baso % (Auto) (0.0-1.0) % Add Manual Diff Neutrophils % (Manual) (42-75) % Band Neutrophils % % Lymphocytes % (Manual) (20-50) % Monocytes % (Manual) (2-8) % Eosinophils % (Manual) (1-3) % Basophils % (Manual) Sodium 136 (136-145) mmol/L Potassium 4.0 (3.5-5.1) mmol/L Chloride 102 (98-107) mmol/L Carbon Dioxide 26 (21-32) mmol/L Anion Gap 12.0 (7-13) mEq/L BUN 6 L (7-18) mg/dL Creatinine 0.71 (0.70-1.30) mg/dL Est Cr Clr Drug Dosing 150.25 mL/min Estimated GFR (MDRD) > 60 BUN/Creatinine Ratio (No establ ref range) Glucose 106 H (74-99) mg/dL Calcium 7.9 L (8.5-10.1) mg/dL Magnesium (1.8-2.4) mg/dL Total Bilirubin 1.5 H (0.2-1.0) mg/dL Direct Bilirubin 0.8 H (0.0-0.2) mg/dL Indirect Bilirubin 0.7 AST 278 H (15-37) U/L ALT 136 H (16-63) U/L Alkaline Phosphatase 204 H (46-116) U/L Ammonia (11-32) umol/L Total Protein 7.0 (6.4-8.2) g/dL Albumin 2.4 L (3.4-5.0) g/dL Globulin 4.6 Albumin/Globulin Ratio 0.52 Amylase (25-115) U/L Lipase (73-393) U/L Urine Color Yellow (YELLOW) Urine Appearance Clear (CLEAR) Urine pH 6.5 (5.0-9.0) Ur Specific [place] >= 1.030 (1.005-1.030) Urine Protein Negative (NEGATIVE) Urine Glucose (UA) Negative (NEGATIVE) Urine Ketones Negative (NEGATIVE) Urine Occult Blood Negative (NEGATIVE) Urine Nitrite Negative (NEGATIVE) Urine Bilirubin Negative (NEGATIVE) Urine Urobilinogen 2.0 H (0.2-1.0) mg/dL Ur Leukocyte Esterase Negative (NEGATIVE) Urine Opiates Screen Negative (NEGATIVE) Ur Oxycodone Screen Negative (NEGATIVE) Urine Methadone Screen Negative (NEGATIVE) Acetaminophen (10-30 (Therapeutic)) ug/mL Ur Barbiturates Screen Negative (NEGATIVE) U Tricyclic Antidepress Negative (NEGATIVE) Ur Phencyclidine Scrn Negative (NEGATIVE) Ur Amphetamine Screen Negative (NEGATIVE) U Methamphetamines Scrn Positive H (NEGATIVE) Urine MDMA Screen Negative (NEGATIVE) U Benzodiazepines Scrn Negative (NEGATIVE) Urine Cocaine Screen Negative (NEGATIVE) U Marijuana (THC) Screen Positive H (NEGATIVE) Ethyl Alcohol (0) mg/dL 07/14/20 Range/Units 05:50 WBC 10.9 H (5.0-10.0) 10^3/uL RBC 4.05 L (4.6-6.2) 10^6/uL Hgb 13.0 L (14.0-18.0) g/dL Hct 39.2 L (40.0-54.0) % MCV 96.8 (80-100) fL MCH 32.1 (27.0-34.0) pg MCHC 33.2 (33.0-35.0) g/dL Plt Count 154 (150-450) 10^3/uL Neut % (Auto) 68.5 (42.2-75.2) % Lymph % (Auto) 13.1 L (20.5-50.1) % [place] % (Auto) 8.4 H (2-8) % Eos % (Auto) 9.0 H (1.0-3.0) % Baso % (Auto) 1.0 (0.0-1.0) % Add Manual Diff Neutrophils % (Manual) (42-75) % Band Neutrophils % % Lymphocytes % (Manual) (20-50) % Monocytes % (Manual) (2-8) % Eosinophils % (Manual) (1-3) % Basophils % (Manual) Sodium (136-145) mmol/L Potassium (3.5-5.1) mmol/L Chloride (98-107) mmol/L Carbon Dioxide (21-32) mmol/L Anion Gap (7-13) mEq/L BUN (7-18) mg/dL Creatinine (0.70-1.30) mg/dL Est Cr Clr Drug Dosing mL/min Estimated GFR (MDRD) BUN/Creatinine Ratio (No establ ref range) Glucose (74-99) mg/dL Calcium (8.5-10.1) mg/dL Magnesium (1.8-2.4) mg/dL Total Bilirubin (0.2-1.0) mg/dL Direct Bilirubin (0.0-0.2) mg/dL Indirect Bilirubin AST (15-37) U/L ALT (16-63) U/L Alkaline Phosphatase (46-116) U/L Ammonia (11-32) umol/L Total Protein (6.4-8.2) g/dL Albumin (3.4-5.0) g/dL Globulin Albumin/Globulin Ratio Amylase (25-115) U/L Lipase (73-393) U/L Urine Color (YELLOW) Urine Appearance (CLEAR) Urine pH (5.0-9.0) Ur Specific [place] (1.005-1.030) Urine Protein (NEGATIVE) Urine Glucose (UA) (NEGATIVE) Urine Ketones (NEGATIVE) Urine Occult Blood (NEGATIVE) Urine Nitrite (NEGATIVE) Urine Bilirubin (NEGATIVE) Urine Urobilinogen (0.2-1.0) mg/dL Ur Leukocyte Esterase (NEGATIVE) Urine Opiates Screen (NEGATIVE) Ur Oxycodone Screen (NEGATIVE) Urine Methadone Screen (NEGATIVE) Acetaminophen (10-30 (Therapeutic)) ug/mL Ur Barbiturates Screen (NEGATIVE) U Tricyclic Antidepress (NEGATIVE) Ur Phencyclidine Scrn (NEGATIVE) Ur Amphetamine Screen (NEGATIVE) U Methamphetamines Scrn (NEGATIVE) Urine MDMA Screen (NEGATIVE) U Benzodiazepines Scrn (NEGATIVE) Urine Cocaine Screen (NEGATIVE) U Marijuana (THC) Screen (NEGATIVE) Ethyl Alcohol (0) mg/dL Med Orders - Current: Current Medications Acetaminophen (Tylenol) 650 mg PO Q4H PRN PRN Reason: Pain (Mild 1-3)/fever Flumazenil (Romazicon) 0.2 mg IVPUSH ASDIRECTED PRN PRN Reason: Respiratory Depression Folic Acid (Folic Acid) 1 mg PO DAILY [facility] Last Admin: 07/14/20 08:18 Dose: 1 mg Documented by: Heparin Sodium (Porcine) (Heparin Sodium) 5,000 units SUBCUT Q8HR [facility] Last Admin: 07/14/20 07:20 Dose: Not Given Documented by: Potassium Chloride/Sodium Chloride (Normal Saline With 20 Meq Kcl) 1,000 mls @ 150 mls/hr IV ASDIRECTED [facility] Last Admin: 07/14/20 08:03 Dose: 150 mls/hr Documented by: Ibuprofen (Motrin) 600 mg PO Q6H PRN PRN Reason: Pain (moderate 4-6) Last Admin: 07/14/20 08:19 Dose: 600 mg Documented by: Lorazepam (Ativan) 0 mg IVPUSH TITRATE PRN; Protocol PRN Reason: [facility] Lorazepam (Ativan) 0 mg PO TITRATE PRN; Protocol PRN Reason: [facility] protocol Last Admin: 07/14/20 08:28 Dose: 1 mg Documented by: Miscellaneous Information (Remove Patch) 1 ea TRDERM DAILY [facility] Multivitamins (Thera) 1 each PO DAILY [facility] Last Admin: 07/14/20 08:18 Dose: 1 each Documented by: Nicotine (Habitrol) 21 mg TRDERM DAILY [facility] Last Admin: 07/14/20 08:17 Dose: 21 mg Documented by: Ondansetron HCl (Zofran Odt) 4 mg PO Q6H PRN PRN Reason: nausea, able to take PO Last Admin: 07/14/20 08:18 Dose: 4 mg Documented by: Ondansetron HCl (Zofran) 4 mg IVPUSH Q6H PRN PRN Reason: Nausea/Vomiting Oxycodone HCl (Oxycodone) 5 mg PO Q4H PRN PRN Reason: Pain (severe 7-10) Sodium Chloride (Saline Flush) 10 ml FLUSH ASDIRECTED PRN PRN Reason: Keep Vein Open Temazepam (Restoril) 15 mg PO BEDTIME PRN PRN Reason: Sleep Last Admin: 07/13/20 22:21 Dose: 15 mg Documented by: Thiamine HCl (Vitamin B-1) 100 mg PO DAILY [facility] Last Admin: 07/14/20 08:18 Dose: 100 mg Documented by: Discontinued Medications Nicotine (Habitrol) 21 mg TRDERM ONETIME ONE Stop: 07/13/20 22:36 Last Admin: 07/13/20 23:48 Dose: 21 mg Documented by: Potassium Chloride (Klor-Con 10) 40 meq PO BIDMEALS [facility] Stop: 07/13/20 18:01 Last Admin: 07/13/20 18:15 Dose: 40 meq Documented by: - Exam General: Alert Neck: Supple Lungs: Clear to Auscultation, Normal Respiratory Effort Cardiovascular: Regular Rate, Regular Rhythm GI/Abdominal Exam: Normal Bowel Sounds, Soft, Non-Tender. No: No Distention, Rebound Extremities: No Pedal Edema Neurological: No New Focal Deficit, Other (No tremor) Sepsis Event Note - Evaluation Sepsis Screening Result: No Definite Risk - Focused Exam Vital Signs: Vital Signs Temp Pulse Resp BP Pulse Ox 07/14/20 11:47 98.4 F 60 16 119/65 99 07/14/20 08:00 98.8 F 72 16 135/74 99 - Problem List & Annotations (1) Alcohol intoxication SNOMED Code(s): 90497539 Code(s): F10.929 - ALCOHOL USE, UNSPECIFIED WITH INTOXICATION, UNSPECIFIED Status: Acute Current Visit: Yes (2) Alcohol abuse SNOMED Code(s): 65574321 Code(s): F10.10 - ALCOHOL ABUSE, UNCOMPLICATED Status: Acute Current Visit: No (3) Alcoholic liver disease, unspecified SNOMED Code(s): 06510386 Code(s): K70.9 - ALCOHOLIC LIVER DISEASE, UNSPECIFIED Status: Acute Current Visit: No (4) Elevated LFTs SNOMED Code(s): 662794808, 825701386 Code(s): R79.89 - OTHER SPECIFIED ABNORMAL FINDINGS OF BLOOD CHEMISTRY Status: Acute Current Visit: No (5) Hep C w/o coma, chronic SNOMED Code(s): 338895984, 788344009 Code(s): B18.2 - CHRONIC VIRAL HEPATITIS C Status: Acute Current Visit: No - Problem List Review Problem List Initiated/Reviewed/Updated: Yes - My Orders Last 24 Hours: My Active Orders 07/13/20 13:57 Ambulate [RC] PER UNIT ROUTINE Oxygen Therapy [RC] PRN Up With Assistance [RC] ASDIRECTED VTE/DVT Education [RC] PER UNIT ROUTINE Vital Signs [RC] Q4H Acetaminophen [Tylenol] 650 mg PO Q4H PRN Ibuprofen [Motrin] 600 mg PO Q6H PRN Ondansetron [Zofran ODT] 4 mg PO Q6H PRN Ondansetron [Zofran] 4 mg IVPUSH Q6H PRN Sodium Chloride 0.9% [Saline Flush] 10 ml FLUSH ASDIRECTED PRN oxyCODONE 5 mg PO Q4H PRN Antiembolic Hose [OM.PC] Per Unit Routine Peripheral IV Insertion Adult [OM.PC] Routine Resuscitation Status Routine 07/13/20 13:58 Antiembolic Devices [RC] PER UNIT ROUTINE Peripheral IV Care [RC] 07/13/20 14:00 Folic Acid 1 mg PO DAILY Heparin Sodium 5,000 units SUBCUT Q8HR LORazepam [Ativan] See Protocol IVPUSH TITRATE PRN Multivitamins,Therapeutic [Thera] 1 each PO DAILY NS + KCl 20mEq/L [Normal Saline with 20 mEq KCl] 1,000 ml IV ASDIRECTED Thiamine [Vitamin B-1] 100 mg PO DAILY flumazeniL [Romazicon] 0.2 mg IVPUSH ASDIRECTED PRN 07/13/20 14:01 LORazepam [Ativan] See Protocol PO TITRATE PRN 07/13/20 Dinner Regular Diet [DIET] 07/13/20 21:00 Temazepam [Restoril] 15 mg PO BEDTIME PRN 07/14/20 09:00 Nicotine [Habitrol] 21 mg TRDERM DAILY 07/15/20 09:00 Remove Patch 1 ea TRDERM DAILY - Plan Plan:: 40-year-old with a history of hepatitis C, heavy alcohol use, IV drug use with amphetamine, marijuana use. As he has been drinking heavily, drinking 99 proof alcohol about a liter and a half daily. On the day of admission the patient underwent and requested alcohol treatment. He was referred to the emergency room for evaluation. He was noted to have high alcohol level. 1. Acute Alcohol intoxication. Resolved We'll stop IV fluids Follow electrolytes. 2. Chronic Alcohol addiction. Consult Social Work and evaluate for alcohol treatment programs. 3. Chronic alcohol use. Supplement thiamine, folate and multivitamin. 4. High Risk for alcohol withdrawal. Frequent evaluations and titration of Ativan per the [facility] protocol 5. diarrhea, abdominal distention Resolved Will give PPI 6. Hypokalemia Resolved with replacement Recheck electrolytes and renal function in the morning 7. Elevated liver enzymes, Hepatitis Likely due to a combination of hepatitis C and alcohol abuse We'll need outpatient follow-up and hepatitis C treatment 8. Deep venous thrombosis (DVT) prophylaxis will be with subcutaneous heparin.
[2020-07-14] MEDS ORDERED: Pantoprazole 40 MG Tab.CR PO SCH (13:00)
[2020-07-14] MEDS ORDERED: Calcium Carbonate 500 MG Tab.Chew PO PRN (18:07)
== END 2020-07-14 19:25 | disposition left against medical advice (07) ==
LOC: DL.ED 12:04 → DL.MS 13:18 → DL.ED 13:36
PROVIDERS: ADMIT Internal Medicine; ATTEND Internal Medicine
DX: F10.220 Alcohol dependence with intoxication, uncomplicated (principal); K70.9 Alcoholic liver disease, unspecified; F10.29 Alcohol dependence with unspecified alcohol-induced disorder; I10 Essential (primary) hypertension; B18.2 Chronic viral hepatitis C; F31.9 Bipolar disorder, unspecified; F90.9 Attention-deficit hyperactivity disorder, unspecified type; F17.210 Nicotine dependence, cigarettes, uncomplicated; R19.7 Diarrhea, unspecified; R14.0 Abdominal distension (gaseous); E87.6 Hypokalemia; Z87.898 Personal history of other specified conditions; Y90.0 Blood alcohol level of less than 20 mg/100 ml
CPT/HCPCS: 36415; 80048; 80053; 80076; 80305; 80307; 81003; 82140; 82150; 83690; 83735; 85025; 99284; A9270; J3480; 96365; 96366; G0378; J1644

== ENCOUNTER 2022-04-22 09:43 | Emergency (ER) | payer SELFPAY ==
[2022-04-22] MEDS ORDERED: MVI, Adult with Vitamin K 10 ML, Thiamine 100 MG, Folic Acid 1 MG in Lactated Ringers 1... IV ONE ×4 (10:25)
[2022-04-22] MEDS ORDERED: Pantoprazole 40 MG Vial IVPUSH ONE (10:25)
[2022-04-22] MEDS ORDERED: Ondansetron 4 MG/2 ML SDV IVPUSH ONE (10:25)
[2022-04-22] MEDS ORDERED: Famotidine 20 MG/2 ML SDV IVPUSH ONE (10:25)
[2022-04-22 11:03] LABS: CHLORIDE,CL 109 mmol/L (98-107)
[2022-04-22 11:06] LABS: ANION GAP 15.9 mEq/L (7-13); SODIUM,NA 147 mmol/L (136-145)
[2022-04-22 11:28] LABS: AMPHETAMINES,URINE NEGATIVE (NEGATIVE); BARBITURATES,URINE NEGATIVE (NEGATIVE); BENZODIAZEPINE,URINE NEGATIVE (NEGATIVE); MDMA (ECSTASY), URINE NEGATIVE (NEGATIVE); METHADONE,URINE NEGATIVE (NEGATIVE); METHAMPHETAMINES,URINE NEGATIVE (NEGATIVE); OPIATES,URINE NEGATIVE (NEGATIVE); OXYCODONE,URINE NEGATIVE (NEGATIVE); PHENCYCLIDINE,URINE NEGATIVE (NEGATIVE); TCA,URINE NEGATIVE (NEGATIVE)
== END 2022-04-22 12:00 | disposition home or self-care (01) ==
LOC: DL.ED 09:43
DX: F10.920 Alcohol use, unspecified with intoxication, uncomplicated (principal); R74.01 Elevation of levels of liver transaminase levels; E87.1 Hypo-osmolality and hyponatremia; F17.210 Nicotine dependence, cigarettes, uncomplicated
CPT/HCPCS: 36415; 80053; 80305; 80307; 81001; 85025; 96365; 96375; 99284; C9113; J2405; J3411; J3490; J7120

== ENCOUNTER 2022-04-23 20:02 | Inpatient (IN) | payer SELFPAY ==
[2022-04-23] MEDS ORDERED: MVI, Adult with Vitamin K 10 ML, Folic Acid 1 MG, Thiamine 100 MG in Lactated Ringers 1... IV ONE ×4 (20:11)
[2022-04-23] MEDS ORDERED: Haloperidol Lactate 5 MG/ML SDV IVPUSH ONE (20:34)
[2022-04-23] MEDS ORDERED: diphenhydrAMINE 50 MG/ML SDV IVPUSH ONE (20:35)
[2022-04-23] MEDS ORDERED: Sodium Chloride 0.9% 1,000 ML IV ONE ×2 (20:43→21:25)
[2022-04-23 21:13] LABS: CHLORIDE,CL 105 mmol/L (98-107); SODIUM,NA 142 mmol/L (136-145)
[2022-04-23] MEDS: Sodium Chloride 0.9% 10 ML Syringe FLUSH PRN ×2 (21:27→21:51)
[2022-04-23] MEDS ORDERED: LORazepam 2 MG/ML SDV IVPUSH ONE (21:30)
[2022-04-23 21:55] LABS: AMPHETAMINES,URINE NEGATIVE (NEGATIVE); BARBITURATES,URINE NEGATIVE (NEGATIVE); BENZODIAZEPINE,URINE POSITIVE (NEGATIVE); MDMA (ECSTASY), URINE NEGATIVE (NEGATIVE); METHADONE,URINE NEGATIVE (NEGATIVE); METHAMPHETAMINES,URINE NEGATIVE (NEGATIVE); OPIATES,URINE NEGATIVE (NEGATIVE); OXYCODONE,URINE NEGATIVE (NEGATIVE); PHENCYCLIDINE,URINE NEGATIVE (NEGATIVE); TCA,URINE NEGATIVE (NEGATIVE)
[2022-04-23] MEDS ORDERED: LORazepam 2 MG/ML SDV IVPUSH PRN (23:16)
[2022-04-23] MEDS: LORazepam 2 MG/ML SDV IVPUSH PRN (23:25)
[2022-04-24] MEDS ORDERED: Thiamine 100 MG Tab PO ONE ×2 (01:13→09:00)
[2022-04-24] MEDS ORDERED: ClonazePAM 0.5 MG Tab PO SCH (01:30)
[2022-04-24] MEDS: Sodium Chloride 0.9% 1,000 ML IV SCH ×2 (01:50→09:42)
[2022-04-24] MEDS: LORazepam 2 MG/ML SDV IVPUSH PRN ×2 (01:56→05:14)
[2022-04-24 07:46] LABS: ANION GAP 12.8 mEq/L (7-13); CHLORIDE,CL 111 mmol/L (98-107); SODIUM,NA 148 mmol/L (136-145)
[2022-04-24] MEDS: ClonazePAM 0.5 MG Tab PO SCH ×2 (09:22→17:29)
[2022-04-24] MEDS ORDERED: Acetaminophen 325 MG Tab PO PRN (20:43)
[2022-04-25] MEDS: ClonazePAM 0.5 MG Tab PO SCH ×2 (00:58→08:15)
== END 2022-04-25 10:25 | disposition left against medical advice (07) | DRG 880 ==
LOC: DL.ED 20:02 → DL.MS 21:43
PROVIDERS: ADMIT Internal Medicine; ATTEND Internal Medicine
DX: R45.851 Suicidal ideations (principal); F10.920 Alcohol use, unspecified with intoxication, uncomplicated; Y90.8 Blood alcohol level of 240 mg/100 ml or more; F32.A Depression, unspecified; F17.200 Nicotine dependence, unspecified, uncomplicated; R79.89 Other specified abnormal findings of blood chemistry; Z86.16 Personal history of COVID-19
CPT/HCPCS: 36415; 80053; 80305-QW; 80307; 81001; 82140; 83605; 83735; 84443; 85025; 85610; 86140; 93005; 93010; 96374; 96375; 99284; 99285-25; A9270-GY; J1200; J1630; J2060; J3490; J7030

== ENCOUNTER 2022-06-12 21:19 | Emergency (ER) | payer SELFPAY ==
[2022-06-12 22:19] LABS: ANION GAP 13.7 mEq/L (7-13)
[2022-06-12 22:24] LABS: AMPHETAMINES,URINE NEGATIVE (NEGATIVE); BARBITURATES,URINE NEGATIVE (NEGATIVE); BENZODIAZEPINE,URINE POSITIVE (NEGATIVE); MDMA (ECSTASY), URINE NEGATIVE (NEGATIVE); METHADONE,URINE NEGATIVE (NEGATIVE); METHAMPHETAMINES,URINE NEGATIVE (NEGATIVE); OPIATES,URINE NEGATIVE (NEGATIVE); OXYCODONE,URINE NEGATIVE (NEGATIVE); PHENCYCLIDINE,URINE NEGATIVE (NEGATIVE); TCA,URINE NEGATIVE (NEGATIVE)
[2022-06-12] MEDS: MVI, Adult with Vitamin K 10 ML, Folic Acid 1 MG, Thiamine 100 MG in Lactated Ringers 1... IV ONE ×4 (22:26)
[2022-06-12] MEDS: Acetaminophen 325 MG Tab PO ONE (22:42)
== END 2022-06-12 23:23 | disposition home or self-care (01) ==
LOC: DL.ED 21:19
DX: S80.12XA Contusion of left lower leg, initial encounter (principal); R04.0 Epistaxis; F10.10 Alcohol abuse, uncomplicated; Z86.16 Personal history of COVID-19; Y90.8 Blood alcohol level of 240 mg/100 ml or more; W22.09XA Striking against other stationary object, initial encounter
CPT/HCPCS: 36415; 73590; 80053; 80143; 80305; 80307; 81003; 82140; 82150; 83690; 83735; 85025; 96365; 99283; 99284; A9270; J3411; J7120; J3490

== ENCOUNTER 2022-07-24 12:37 | Inpatient (IN) | payer MEDICAID, OTHER ==
[2022-07-24 14:10] LABS: ANION GAP 12.7 mEq/L (7-13)
[2022-07-24] MEDS: Sodium Chloride 0.9% 10 ML Syringe FLUSH PRN ×2 (14:15→14:36)
[2022-07-24] MEDS ORDERED: fentaNYL 100 MCG/2 ML SDV IVPUSH ONE ×2 (14:27→18:00)
[2022-07-24] MEDS ORDERED: Iopamidol 612 MG/ML 100 ML Bottle IVPUSH ONE (15:05)
[2022-07-24] MEDS ORDERED: Barium Sulfate 0.1% Susp 450 ML Bottle PO ONE (15:05)
[2022-07-24] MEDS ORDERED: Barium Sulfate w/v 2.1% Oral Susp 450 ML Bottle PO ONE (17:00)
[2022-07-24] MEDS ORDERED: Ondansetron 4 MG/2 ML SDV IVPUSH PRN (19:59)
[2022-07-24] MEDS ORDERED: Magnesium Hydroxide 400 MG/5 ML Susp 30 ML Cup PO PRN (19:59)
[2022-07-24] MEDS ORDERED: Albuterol/Ipratropium 3.0-0.5 MG/3 ML Neb Soln NEB PRN (19:59)
[2022-07-24] MEDS ORDERED: Ibuprofen 400 MG Tab PO PRN (19:59)
[2022-07-24] MEDS ORDERED: LORazepam 2 MG/ML SDV IVPUSH PRN (19:59)
[2022-07-24] MEDS ORDERED: HYDROmorphone 0.5 MG/0.5 ML Syringe IVPUSH PRN (19:59)
[2022-07-24] MEDS ORDERED: Zolpidem 5 MG Tab PO PRN (19:59)
[2022-07-24] MEDS ORDERED: Nicotine 21 MG/24 Hr Patch TRDERM PRN (20:02)
[2022-07-24] MEDS ORDERED: Morphine 2 MG/ML SYRINGE IVPUSH ONE (20:05)
[2022-07-24] MEDS ORDERED: Albumin Human 25 GM in Premix Bag 1 BAG IV SCH ×2 (20:15→23:49)
[2022-07-24] MEDS ORDERED: Magnesium Sulfate/Water 2 GM in Premix Bag 1 BAG IV ONE (20:20)
[2022-07-24] MEDS ORDERED: Lidocaine 1% 5 ML VIAL ONE ×2 (22:43→22:45)
[2022-07-24] MEDS ORDERED: Lidocaine 1% 5 ML VIAL INJECT ONE (22:55)
[2022-07-24] MEDS ORDERED: Albumin 5% 0 ML ONE ×3 (23:34→23:38)
[2022-07-24] MEDS ORDERED: Midodrine 2.5 MG Tab PO PRN (23:39)
[2022-07-24] MEDS ORDERED: Folic Acid 1 MG in Sodium Chloride 0.9% 50 ML IV ONE (23:41)
[2022-07-24] MEDS ORDERED: Thiamine 200 MG in Sodium Chloride 0.9% 100 ML IV ONE (23:41)
[2022-07-24] MEDS ORDERED: Ertapenem 1 GM in Sodium Chloride 0.9% 50 ML IV ONE (23:53)
[2022-07-24] MEDS ORDERED: Albumin 25% 0 ML ONE (23:54)
[2022-07-25] MEDS: Albumin 25% 12.5 GM in Premix Bag 1 BAG IV SCH ×4 (00:41→02:12)
[2022-07-25] MEDS: HYDROmorphone 0.5 MG/0.5 ML Syringe IVPUSH PRN ×3 (00:42→07:31)
[2022-07-25] MEDS: MVI, Adult with Vitamin K 10 ML SDV IV ONE ×2 (00:47→01:22)
[2022-07-25 01:17] LABS: AMPHETAMINES,URINE NEGATIVE (NEGATIVE); BARBITURATES,URINE NEGATIVE (NEGATIVE); BENZODIAZEPINE,URINE NEGATIVE (NEGATIVE); MDMA (ECSTASY), URINE NEGATIVE (NEGATIVE); METHADONE,URINE NEGATIVE (NEGATIVE); METHAMPHETAMINES,URINE NEGATIVE (NEGATIVE); OPIATES,URINE POSITIVE (NEGATIVE); OXYCODONE,URINE NEGATIVE (NEGATIVE); PHENCYCLIDINE,URINE NEGATIVE (NEGATIVE); TCA,URINE NEGATIVE (NEGATIVE)
[2022-07-25] MEDS ORDERED: FOLIC ACID IV ONE ×4 (03:00)
[2022-07-25] MEDS ORDERED: MVI IV ONE ×4 (03:00)
[2022-07-25] MEDS ORDERED: [UNRECOGNIZED DRUG - OTHER] IV ONE ×4 (03:00)
[2022-07-25] MEDS ORDERED: THIAMINE IV ONE ×4 (03:00)
[2022-07-25] MEDS ORDERED: VITAMIN K IV ONE ×4 (03:00)
[2022-07-25] MEDS: Albumin Human 25 GM in Premix Bag 1 BAG IV SCH ×2 (05:41→12:32)
[2022-07-25] MEDS: Pantoprazole 40 MG Tab.CR PO SCH ×2 (05:41→15:27)
[2022-07-25 07:24] LABS: ANION GAP 12.7 mEq/L (7-13)
[2022-07-25] MEDS ORDERED: Furosemide 100 MG in Sodium Chloride 0.9% 90 ML IV SCH ×2 (08:15→08:45)
[2022-07-25] MEDS: Spironolactone 25 MG Tab PO SCH (09:17)
[2022-07-25] MEDS ORDERED: Ertapenem 1 GM in Sodium Chloride 0.9% 50 ML IV SCH ×4 (12:00)
[2022-07-25] MEDS: oxyCODONE 5 MG Tab PO PRN ×2 (12:25→18:26)
[2022-07-25] MEDS: Albumin 25% 25 GM in Premix Bag 1 BAG IV SCH ×2 (12:25→17:02)
[2022-07-25] MEDS ORDERED: Phytonadione 5 MG Tab PO ONE (21:00)
[2022-07-26] MEDS: oxyCODONE 5 MG Tab PO PRN ×2 (00:33→08:12)
[2022-07-26] MEDS: Pantoprazole 40 MG Tab.CR PO SCH (05:26)
[2022-07-26 07:05] LABS: ANION GAP 12.7 mEq/L (7-13)
[2022-07-26] MEDS ORDERED: Magnesium Sulfate/Water 2 GM in Premix Bag 1 BAG IV ONE (08:00)
[2022-07-26] MEDS: Spironolactone 25 MG Tab PO SCH (08:12)
[2022-07-26] MEDS ORDERED: Phytonadione 5 MG Tab PO ONE (09:00)
[2022-07-26] MEDS ORDERED: Ascorbic Acid 500 MG Tab PO SCH (09:00)
[2022-07-26] MEDS ORDERED: Iron Polysaccharides Complex 150 MG Cap PO SCH (09:00)
[2022-07-26] MEDS ORDERED: HYDROmorphone 1 MG/ML Syringe IVPUSH PRN (13:54)
== END 2022-07-26 12:55 | disposition home or self-care (01) | DRG 442 ==
LOC: DL.ED 12:37 → DL.MS 18:04
PROVIDERS: ADMIT Internal Medicine; ATTEND Internal Medicine
PROC: 0W9G3ZZ Drainage of Peritoneal Cavity, Percutaneous Approach (ICD-10-PCS; principal; 2022-07-24)
DX: K72.00 Acute and subacute hepatic failure without coma (principal); D68.9 Coagulation defect, unspecified; E87.1 Hypo-osmolality and hyponatremia; E44.0 Moderate protein-calorie malnutrition; F32.A Depression, unspecified; Z68.27 Body mass index [BMI] 27.0-27.9, adult; F41.9 Anxiety disorder, unspecified; F10.21 Alcohol dependence, in remission; F15.21 Other stimulant dependence, in remission; K72.10 Chronic hepatic failure without coma; B18.2 Chronic viral hepatitis C; R16.1 Splenomegaly, not elsewhere classified; D50.9 Iron deficiency anemia, unspecified; F17.210 Nicotine dependence, cigarettes, uncomplicated; K70.31 Alcoholic cirrhosis of liver with ascites; D69.6 Thrombocytopenia, unspecified; Z20.822 Contact with and (suspected) exposure to COVID-19; E83.51 Hypocalcemia; E83.42 Hypomagnesemia; Z79.899 Other long term (current) drug therapy; Z87.19 Personal history of other diseases of the digestive system; Z86.16 Personal history of COVID-19
CPT/HCPCS: 36415; 74178; 80053; 80305-QW; 80307; 81001; 82140; 82607; 82746; 82977; 83540; 83550; 83605; 83690; 83735; 85025; 85610; 86140; 87040; 87070; 96374; 96376; 99284; 99285-25; A9270-GY; J1170; J1335; J1940; J2060; J2270; J3010; J3411; J3430; J3475; J3490; J7040; P9047; Q9967; U0002

== ENCOUNTER 2022-08-01 13:51 | Emergency (ER) | payer MEDICAID, OTHER | END 2022-08-01 16:07 | disposition home or self-care (01) | LOC: DL.ED 13:51 | DX: K70.9 Alcoholic liver disease, unspecified (principal); F17.210 Nicotine dependence, cigarettes, uncomplicated | CPT/HCPCS: 36415; 83605; 85025; 86140; 87040; 99284 ==

== ENCOUNTER 2022-12-19 18:56 | Emergency (ER) | payer MEDICAID, OTHER ==
[2022-12-19 19:38] LABS: AMPHETAMINES,URINE NEGATIVE (NEGATIVE); BARBITURATES,URINE NEGATIVE (NEGATIVE); BENZODIAZEPINE,URINE NEGATIVE (NEGATIVE); MDMA (ECSTASY), URINE NEGATIVE (NEGATIVE); METHADONE,URINE NEGATIVE (NEGATIVE); METHAMPHETAMINES,URINE NEGATIVE (NEGATIVE); OPIATES,URINE NEGATIVE (NEGATIVE); OXYCODONE,URINE NEGATIVE (NEGATIVE); PHENCYCLIDINE,URINE NEGATIVE (NEGATIVE); TCA,URINE NEGATIVE (NEGATIVE)
[2022-12-19 20:33] LABS: ANION GAP 15.8 mEq/L (7-13)
== END 2022-12-19 20:45 ==
LOC: DL.ED 18:56
DX: S46.911A Strain of unspecified muscle, fascia and tendon at shoulder and upper arm level, right arm, initial encounter (principal); S60.221A Contusion of right hand, initial encounter; F10.10 Alcohol abuse, uncomplicated; F17.210 Nicotine dependence, cigarettes, uncomplicated; Z86.16 Personal history of COVID-19; Z79.899 Other long term (current) drug therapy; W19.XXXA Unspecified fall, initial encounter
CPT/HCPCS: 36415; 73070-RT; 73130-RT; 80053; 80143; 80179; 80305-QW; 80307; 81003; 85025; 99284

== ENCOUNTER 2023-01-06 10:07 | Emergency (ER) | payer MEDICAID ==
[2023-01-06] MEDS ORDERED: Sodium Chloride 0.9% 10 ML Syringe FLUSH PRN (10:42)
[2023-01-06] MEDS ORDERED: MVI, Adult with Vitamin K 10 ML, Thiamine 100 MG, Folic Acid 1 MG in Lactated Ringers 1... IV ONE ×4 (10:43)
[2023-01-06] MEDS ORDERED: Pantoprazole 40 MG Vial IVPUSH ONE (10:43)
[2023-01-06 11:02] LABS: ANION GAP 12.4 mEq/L (7-13)
[2023-01-06 11:20] LABS: PTT,PARTIAL THROMBOPLSTIN TIME 33.1 SEC (22.0-34.0)
[2023-01-06 11:21] LABS: AMPHETAMINES,URINE NEGATIVE (NEGATIVE); BARBITURATES,URINE NEGATIVE (NEGATIVE); BENZODIAZEPINE,URINE NEGATIVE (NEGATIVE); MDMA (ECSTASY), URINE NEGATIVE (NEGATIVE); METHADONE,URINE NEGATIVE (NEGATIVE); METHAMPHETAMINES,URINE POSITIVE (NEGATIVE); OPIATES,URINE NEGATIVE (NEGATIVE); OXYCODONE,URINE NEGATIVE (NEGATIVE); PHENCYCLIDINE,URINE NEGATIVE (NEGATIVE); TCA,URINE NEGATIVE (NEGATIVE)
== END 2023-01-06 12:28 | disposition home or self-care (01) ==
LOC: DL.ED 10:07
DX: K72.10 Chronic hepatic failure without coma (principal); B18.2 Chronic viral hepatitis C; K59.00 Constipation, unspecified; F10.920 Alcohol use, unspecified with intoxication, uncomplicated; F15.90 Other stimulant use, unspecified, uncomplicated; Z86.16 Personal history of COVID-19; Y90.0 Blood alcohol level of less than 20 mg/100 ml
CPT/HCPCS: 36415; 74019; 80053; 80305; 80307; 81001; 82140; 82150; 83690; 85025; 85610; 85730; 96365; 96375; 99284; 99285; C9113; J3411; J3490; J7120

== ENCOUNTER 2023-01-14 10:30 | Emergency (ER) | payer MEDICAID | END 2023-01-14 11:00 | disposition home or self-care (01) | LOC: DL.ED 10:30 | DX: H66.92 Otitis media, unspecified, left ear (principal) | CPT/HCPCS: 99282 ==

== ENCOUNTER 2023-01-16 16:52 | Emergency (ER) | payer MEDICAID ==
[2023-01-16 17:58] LABS: ANION GAP 14.2 mEq/L (7-13)
== END 2023-01-16 19:05 ==
LOC: DL.ED 16:52
DX: F10.920 Alcohol use, unspecified with intoxication, uncomplicated (principal); E87.0 Hyperosmolality and hypernatremia; D69.6 Thrombocytopenia, unspecified; R03.0 Elevated blood-pressure reading, without diagnosis of hypertension; R74.8 Abnormal levels of other serum enzymes; Y90.8 Blood alcohol level of 240 mg/100 ml or more
CPT/HCPCS: 36415; 80053; 80307; 85025; 85610; 99283; 99284

== ENCOUNTER 2024-03-23 18:34 | Emergency (ER) | payer MEDICAID ==
[2024-03-23 19:05] LABS: APPEARANCE,URINE CLEAR (CLEAR); BILIRUBIN,URINE MODERATE (NEGATIVE); COLOR,URINE DARK YELLOW (YELLOW); GLUCOSE,URINE 100 (NEGATIVE); KETONES,URINE 15 (NEGATIVE); LEUKOCYTE ESTERASE,URINE NEGATIVE (NEGATIVE); NITRITE,URINE NEGATIVE (NEGATIVE); OCCULT BLOOD,URINE NEGATIVE (NEGATIVE); PH,URINE 8.5 (5.0-9.0); PROTEIN,URINE TRACE (NEGATIVE); UROBILINOGEN,URINE >=8.0 mg/dL (0.2-1.0)
[2024-03-23] MEDS: Sodium Chloride 0.9% 10 ML Syringe FLUSH PRN (19:32)
[2024-03-23 19:36] LABS: EPITHELIAL CELLS,URINE FEW /HPF (NOT SEEN); RBC,URINE 0-5 /HPF (0-5); WBC,URINE 0-5 /HPF (0-5/HPF)
[2024-03-23 19:37] LABS: AMORPHOUS SEDIMENT,URINE FEW /HPF (NOT SEEN); BACTERIA,URINE MODERATE /HPF (0-FEW/HPF); MUCUS,URINE MANY /LPF (NOT SEEN)
[2024-03-23 19:43] LABS: BASOPHILS PERCENT AUTO 0.7 % (0.0-1.0); HEMATOCRIT 39.5 % (40.0-54.0); HEMOGLOBIN 13.9 g/dL (14.0-18.0); LYMPHOCYTES PERCENT AUTO 15.6 % (20.5-50.1); MEAN CORPUSCULAR HEMOGLOBIN 33.2 pg (27.0-34.0); MEAN CORPUSCULAR HGB CONC 35.2 g/dL (33.0-35.0); MEAN CORPUSCULAR VOLUME 94.3 fL (80-100); MONOCYTES PERCENT AUTO 10.7 % (2-8); PLATELET COUNT,PLT 49 10^3/uL (150-450); RED BLOOD CELL COUNT 4.19 10^6/uL (4.6-6.2); WHITE BLOOD CELL COUNT,WBC 5.9 10^3/uL (5.0-10.0)
[2024-03-23 20:02] LABS: A/G RATIO 0.67; ALBUMIN 2.6 g/dL (3.4-5.0); ANION GAP 11.4 mEq/L (7-13); BILIRUBIN DIRECT 3.6 mg/dL (0.0-0.2); BILIRUBIN INDIRECT 3.7; BILIRUBIN TOTAL 7.3 mg/dL (0.2-1.0); CALCIUM 7.5 mg/dL (8.5-10.1); CREATININE 0.84 mg/dL (0.70-1.30); EST CRCL DRUG DOSING (CG) 122.01 mL/min; MAGNESIUM 1.3 mg/dL (1.8-2.4); POTASSIUM,K 3.4 mmol/L (3.5-5.1)
[2024-03-23 20:13] LABS: INR 1.9 (0.9-1.2); PROTHROMBIN TIME 18.9 SEC (9.0-12.0); PTT,PARTIAL THROMBOPLSTIN TIME 31.8 SEC (22.0-34.0)
[2024-03-23 20:21] LABS: PROTEIN TOTAL,TP 6.6 g/dL (6.4-8.2)
[2024-03-23] MEDS: Magnesium Sulfate/Water 2 GM in Premix Bag 1 BAG IV ONE ×3 (20:23→20:55)
== END 2024-03-23 21:35 | disposition home or self-care (01) ==
LOC: DL.ED 18:34
DX: K70.31 Alcoholic cirrhosis of liver with ascites (principal); B18.2 Chronic viral hepatitis C; E83.42 Hypomagnesemia; F10.10 Alcohol abuse, uncomplicated; D69.6 Thrombocytopenia, unspecified; Z86.16 Personal history of COVID-19; Y90.0 Blood alcohol level of less than 20 mg/100 ml
CPT/HCPCS: 36415; 80048; 80076; 80307; 81001; 82140; 83735; 85025; 85610; 85730; 96365; 99284-25; J3475; J3490

== ENCOUNTER 2024-03-31 15:52 | Emergency (ER) | payer MEDICAID, OTHER ==
[2024-03-31] MEDS: Ondansetron 4 MG Tab.DIS PO ONE (16:08)
[2024-03-31] MEDS: LORazepam 1 MG Tab PO ONE (16:08)
[2024-03-31 16:15] LABS: BASOPHILS PERCENT AUTO 1.7 % (0.0-1.0); EOSINOPHILS PERCENT AUTO 7.4 % (1.0-3.0); HEMATOCRIT 40.1 % (40.0-54.0); LYMPHOCYTES PERCENT AUTO 24.1 % (20.5-50.1); MEAN CORPUSCULAR HEMOGLOBIN 33.3 pg (27.0-34.0); MEAN CORPUSCULAR HGB CONC 34.9 g/dL (33.0-35.0); MEAN CORPUSCULAR VOLUME 95.2 fL (80-100); MONOCYTES PERCENT AUTO 20.4 % (2-8); NEUTROPHILS PERCENT AUTO 46.4 % (42.2-75.2); PLATELET COUNT,PLT 58 10^3/uL (150-450); RED BLOOD CELL COUNT 4.21 10^6/uL (4.6-6.2); WHITE BLOOD CELL COUNT,WBC 4.6 10^3/uL (5.0-10.0)
[2024-03-31 16:32] LABS: INR 1.6 (0.9-1.2); PROTHROMBIN TIME 16.1 SEC (9.0-12.0); PTT,PARTIAL THROMBOPLSTIN TIME 30.6 SEC (22.0-34.0)
[2024-03-31 16:35] LABS: AMPHETAMINES,URINE NEGATIVE (NEGATIVE); APPEARANCE,URINE CLEAR (CLEAR); BARBITURATES,URINE NEGATIVE (NEGATIVE); BENZODIAZEPINE,URINE NEGATIVE (NEGATIVE); BILIRUBIN,URINE MODERATE (NEGATIVE); COLOR,URINE AMBER (YELLOW); GLUCOSE,URINE 100 (NEGATIVE); KETONES,URINE 15 (NEGATIVE); LEUKOCYTE ESTERASE,URINE NEGATIVE (NEGATIVE); MDMA (ECSTASY), URINE POSITIVE (NEGATIVE); METHADONE,URINE NEGATIVE (NEGATIVE); METHAMPHETAMINES,URINE NEGATIVE (NEGATIVE); NITRITE,URINE POSITIVE (NEGATIVE); OCCULT BLOOD,URINE NEGATIVE (NEGATIVE); OPIATES,URINE NEGATIVE (NEGATIVE); OXYCODONE,URINE NEGATIVE (NEGATIVE); PHENCYCLIDINE,URINE NEGATIVE (NEGATIVE); PROTEIN,URINE 30 (NEGATIVE); TCA,URINE NEGATIVE (NEGATIVE); UROBILINOGEN,URINE >=8.0 mg/dL (0.2-1.0)
[2024-03-31 16:41] LABS: A/G RATIO 0.65; ALBUMIN 2.8 g/dL (3.4-5.0); ANION GAP 12.5 mEq/L (7-13); BILIRUBIN TOTAL 5.1 mg/dL (0.2-1.0); BUN/CREATININE RATIO 4.1 (No establ ref range); CALCIUM 7.8 mg/dL (8.5-10.1); CREATININE 0.73 mg/dL (0.70-1.30); EST CRCL DRUG DOSING (CG) 140.4 mL/min; MAGNESIUM 1.6 mg/dL (1.8-2.4); POTASSIUM,K 3.5 mmol/L (3.5-5.1); PROTEIN TOTAL,TP 7.1 g/dL (6.4-8.2); TSH ULTRASENSITIVE 0.69 uIU/mL (0.36-3.74)
[2024-03-31 16:47] LABS: EPITHELIAL CELLS,URINE FEW /HPF (NOT SEEN)
[2024-03-31 16:48] LABS: MUCUS,URINE MANY /LPF (NOT SEEN)
[2024-03-31 16:50] LABS: BACTERIA,URINE FEW /HPF (0-FEW/HPF); RBC,URINE 0-5 /HPF (0-5); WBC,URINE 0-5 /HPF (0-5/HPF)
[2024-03-31 16:52] LABS: YEAST,URINE MODERATE /HPF (NOT SEEN)
[2024-03-31 17:02] LABS: CORONAVIRUS COVID-19 NAA NEGATIVE (NEGATIVE); INFLUENZA A NAA NEGATIVE (NEGATIVE); INFLUENZA B NAA NEGATIVE (NEGATIVE); RESPIRATORY SYNCYTIAL VIR NAA NEGATIVE (NEGATIVE)
== END 2024-03-31 17:23 | disposition home or self-care (01) ==
LOC: DL.ED 15:52
DX: F10.230 Alcohol dependence with withdrawal, uncomplicated (principal); K70.9 Alcoholic liver disease, unspecified; H66.002 Acute suppurative otitis media without spontaneous rupture of ear drum, left ear; E83.42 Hypomagnesemia; F17.200 Nicotine dependence, unspecified, uncomplicated; Z86.16 Personal history of COVID-19; Y90.9 Presence of alcohol in blood, level not specified
CPT/HCPCS: 0241U; 36415; 80053; 80143; 80179; 80305-QW; 80307; 81001; 83735; 84443; 85025; 85610; 85730; 87086; 87491; 87563; 87591; 99284; A9270-GY

== ENCOUNTER 2024-04-14 17:00 | Emergency (ER) | payer MEDICAID ==
[2024-04-14] MEDS: Sodium Chloride 0.9% 10 ML Syringe FLUSH PRN (17:26)
[2024-04-14 17:30] LABS: BASOPHILS PERCENT AUTO 0.5 % (0.0-1.0); EOSINOPHILS PERCENT AUTO 1.6 % (1.0-3.0); HEMATOCRIT 36.4 % (40.0-54.0); HEMOGLOBIN 12.7 g/dL (14.0-18.0); LYMPHOCYTES PERCENT AUTO 14.3 % (20.5-50.1); MEAN CORPUSCULAR HEMOGLOBIN 33.8 pg (27.0-34.0); MEAN CORPUSCULAR HGB CONC 34.9 g/dL (33.0-35.0); MEAN CORPUSCULAR VOLUME 96.8 fL (80-100); MONOCYTES PERCENT AUTO 7.9 % (2-8); NEUTROPHILS PERCENT AUTO 75.7 % (42.2-75.2); PLATELET COUNT,PLT 52 10^3/uL (150-450); RED BLOOD CELL COUNT 3.76 10^6/uL (4.6-6.2); WHITE BLOOD CELL COUNT,WBC 9.8 10^3/uL (5.0-10.0)
[2024-04-14 17:50] LABS: BILIRUBIN,URINE MODERATE (NEGATIVE); GLUCOSE,URINE 100 (NEGATIVE); KETONES,URINE TRACE (NEGATIVE); LEUKOCYTE ESTERASE,URINE NEGATIVE (NEGATIVE); NITRITE,URINE NEGATIVE (NEGATIVE); OCCULT BLOOD,URINE NEGATIVE (NEGATIVE); PROTEIN,URINE 30 (NEGATIVE); UROBILINOGEN,URINE >=8.0 mg/dL (0.2-1.0)
[2024-04-14 17:54] LABS: AMPHETAMINES,URINE NEGATIVE (NEGATIVE); BARBITURATES,URINE NEGATIVE (NEGATIVE); BENZODIAZEPINE,URINE NEGATIVE (NEGATIVE); COLOR,URINE AMBER (YELLOW); MDMA (ECSTASY), URINE NEGATIVE (NEGATIVE); METHADONE,URINE NEGATIVE (NEGATIVE); METHAMPHETAMINES,URINE NEGATIVE (NEGATIVE); OPIATES,URINE NEGATIVE (NEGATIVE); OXYCODONE,URINE NEGATIVE (NEGATIVE); PHENCYCLIDINE,URINE NEGATIVE (NEGATIVE); TCA,URINE NEGATIVE (NEGATIVE)
[2024-04-14 17:55] LABS: ALBUMIN 2.4 g/dL (3.4-5.0); ANION GAP 12.4 mEq/L (7-13); BILIRUBIN TOTAL 5.6 mg/dL (0.2-1.0); BUN/CREATININE RATIO 8.5 (No establ ref range); C-REACTIVE PROTEIN 4.16 ng/dL (<=0.50); CALCIUM 7.7 mg/dL (8.5-10.1); CREATININE 0.82 mg/dL (0.70-1.30); EST CRCL DRUG DOSING (CG) 124.99 mL/min; MAGNESIUM 1.4 mg/dL (1.8-2.4); POTASSIUM,K 3.4 mmol/L (3.5-5.1); PROTEIN TOTAL,TP 6.6 g/dL (6.4-8.2)
[2024-04-14 17:55] LABS: APPEARANCE,URINE SLIGHTLY CLOUDY (CLEAR)
[2024-04-14 17:57] LABS: A/G RATIO 0.57
[2024-04-14 18:04] LABS: LACTIC ACID 2.3 mmol/L (0.4-2.0)
[2024-04-14 18:09] LABS: INR 1.6 (0.9-1.2); PROTHROMBIN TIME 16.2 SEC (9.0-12.0)
[2024-04-14] MEDS: Magnesium Sulfate/Water 2 GM in Premix Bag 1 BAG IV ONE (18:28)
[2024-04-14] MEDS: Potassium Chloride 10 MEQ Tab.ER PO ONE (18:29)
[2024-04-14] MEDS: Furosemide 40 MG/4 ML VIAL IV ONE (18:29)
[2024-04-14 19:06] LABS: WBC,URINE 0-5 /HPF (0-5/HPF)
[2024-04-14 19:07] LABS: BACTERIA,URINE FEW /HPF (0-FEW/HPF); EPITHELIAL CELLS,URINE FEW /HPF (NOT SEEN); MUCUS,URINE MANY /LPF (NOT SEEN); YEAST,URINE FEW /HPF (NOT SEEN)
== END 2024-04-14 19:52 | disposition home or self-care (01) ==
LOC: DL.ED 17:00
DX: R60.0 Localized edema (principal); E83.42 Hypomagnesemia; K70.0 Alcoholic fatty liver; E88.09 Other disorders of plasma-protein metabolism, not elsewhere classified
CPT/HCPCS: 36415; 71045; 73600-50; 80053; 80305-QW; 80307; 81001; 82150; 83605; 83690; 83735; 83880; 84145; 85025; 85610; 85730; 86140; 96365; 96375; 99283-25; A9270-GY; J1940; J3475; J3490

== ENCOUNTER 2024-05-02 07:11 | Emergency (ER) | payer MEDICAID | END 2024-05-02 07:51 | disposition home or self-care (01) | LOC: DL.ED 07:11 | DX: G56.22 Lesion of ulnar nerve, left upper limb (principal); F17.210 Nicotine dependence, cigarettes, uncomplicated | CPT/HCPCS: 93005; 99284 ==

== ENCOUNTER 2024-05-04 14:28 | Emergency (ER) | payer MEDICAID | END 2024-05-04 15:08 | disposition home or self-care (01) | LOC: DL.ED 14:28 | DX: R20.0 Anesthesia of skin (principal); R20.2 Paresthesia of skin | CPT/HCPCS: 99283 ==

== ENCOUNTER 2024-05-09 20:49 | Inpatient (IN) | payer MEDICAID ==
[2024-05-09 21:50] LABS: BASOPHILS PERCENT AUTO 1.1 % (0.0-1.0); EOSINOPHILS PERCENT AUTO 6.5 % (1.0-3.0); HEMOGLOBIN 13.6 g/dL (14.0-18.0); MEAN CORPUSCULAR HEMOGLOBIN 33.5 pg (27.0-34.0); MEAN CORPUSCULAR VOLUME 98.5 fL (80-100); MONOCYTES PERCENT AUTO 9.2 % (2-8); NEUTROPHILS PERCENT AUTO 59.2 % (42.2-75.2); PLATELET COUNT,PLT 46 10^3/uL (150-450); RED BLOOD CELL COUNT 4.06 10^6/uL (4.6-6.2); WHITE BLOOD CELL COUNT,WBC 5.7 10^3/uL (5.0-10.0)
[2024-05-09 22:04] LABS: APPEARANCE,URINE CLEAR (CLEAR); BILIRUBIN,URINE SMALL (NEGATIVE); COLOR,URINE DARK YELLOW (YELLOW); GLUCOSE,URINE NEGATIVE (NEGATIVE); KETONES,URINE NEGATIVE (NEGATIVE); LEUKOCYTE ESTERASE,URINE NEGATIVE (NEGATIVE); NITRITE,URINE NEGATIVE (NEGATIVE); OCCULT BLOOD,URINE NEGATIVE (NEGATIVE); PH,URINE 6.5 (5.0-9.0); PROTEIN,URINE 30 (NEGATIVE)
[2024-05-09 22:09] LABS: AMPHETAMINES,URINE NEGATIVE (NEGATIVE); BARBITURATES,URINE NEGATIVE (NEGATIVE); BENZODIAZEPINE,URINE NEGATIVE (NEGATIVE); MDMA (ECSTASY), URINE POSITIVE (NEGATIVE); METHADONE,URINE NEGATIVE (NEGATIVE); METHAMPHETAMINES,URINE NEGATIVE (NEGATIVE); OPIATES,URINE NEGATIVE (NEGATIVE); OXYCODONE,URINE NEGATIVE (NEGATIVE); PHENCYCLIDINE,URINE NEGATIVE (NEGATIVE); TCA,URINE NEGATIVE (NEGATIVE)
[2024-05-09 22:10] LABS: ALANINE AMINOTRANSFERASE,ALT 171 U/L (16-63); ALBUMIN 2.6 g/dL (3.4-5.0); ALKALINE PHOSPHATASE 242 U/L (46-116); ANION GAP 12.4 mEq/L (7-13); ASPARTATE AMNIOTRANSFERASE,AST 267 U/L (15-37); BILIRUBIN TOTAL 3.7 mg/dL (0.2-1.0); BLOOD UREA NITROGEN,BUN 5 mg/dL (7-18); BUN/CREATININE RATIO 6.7 (No establ ref range); CALCIUM 7.4 mg/dL (8.5-10.1); CARBON DIOXIDE,CO2 28 mmol/L (21-32); CHLORIDE,CL 110 mmol/L (98-107); CREATININE 0.75 mg/dL (0.70-1.30); ETHANOL BLOOD MEDICAL 212 mg/dL (0); GLUCOSE RANDOM 106 mg/dL (70-99); MAGNESIUM 1.7 mg/dL (1.8-2.4); POTASSIUM,K 3.4 mmol/L (3.5-5.1); PROTEIN TOTAL,TP 6.7 g/dL (6.4-8.2); SODIUM,NA 147 mmol/L (136-145)
[2024-05-09 22:16] LABS: A/G RATIO 0.63; ESTIMATED GFR 116 mL/min (>=60)
[2024-05-09 22:19] LABS: BACTERIA,URINE MODERATE /HPF (0-FEW/HPF); EPITHELIAL CELLS,URINE FEW /HPF (NOT SEEN); RBC,URINE 0-5 /HPF (0-5)
[2024-05-09 22:20] LABS: CALCIUM OXALATE CRYSTALS,URINE FEW /HPF (NOT SEEN); MUCUS,URINE MANY /LPF (NOT SEEN)
[2024-05-09] MEDS: Sodium Chloride 0.9% 10 ML Syringe FLUSH PRN (22:42)
[2024-05-09 22:56] LABS: INR 1.6 (0.9-1.2); PTT,PARTIAL THROMBOPLSTIN TIME 30.5 SEC (22.0-34.0)
[2024-05-10] MEDS ORDERED: Ondansetron 4 MG/2 ML SDV IVPUSH PRN (00:42)
[2024-05-10] MEDS ORDERED: HYDROmorphone 0.5 MG/0.5 ML Syringe IVPUSH PRN (00:42)
[2024-05-10] MEDS ORDERED: Naloxone 2 MG/2 ML Syringe IVPUSH PRN (00:42)
[2024-05-10] MEDS ORDERED: Albuterol/Ipratropium 3.0-0.5 MG/3 ML Neb Soln NEB PRN (00:42)
[2024-05-10] MEDS ORDERED: Midodrine 5 MG Tab PO PRN (01:00)
[2024-05-10] MEDS ORDERED: Haloperidol Lactate 5 MG/ML SDV IM PRN ×2 (01:06→01:21)
[2024-05-10] MEDS: Phytonadione 5 MG in Sodium Chloride 0.9% 50 ML IV ONE (01:38)
[2024-05-10] MEDS: Bumetanide 1 MG/4 ML MDV IVPUSH ONE (01:39)
[2024-05-10] MEDS: Ibuprofen 600 MG Tab PO PRN (01:40)
[2024-05-10] MEDS: Potassium Chloride 10 MEQ Tab.ER PO ONE (01:41)
[2024-05-10] MEDS: cloNIDine 0.1 MG Tab PO PRN (01:41)
[2024-05-10] MEDS: Albumin Human 25 GM in Premix Bag 1 BAG IV SCH (02:24)
[2024-05-10] MEDS: Magnesium Sulfate/Water 2 GM in Premix Bag 1 BAG IV ONE (03:18)
[2024-05-10] MEDS: MVI, Adult with Vitamin K 10 ML, Folic Acid 1 MG, Thiamine 100 MG in Lactated Ringers 1... IV ONE (03:18)
[2024-05-10] MEDS: Thiamine 100 MG in Sodium Chloride 0.9% 50 ML IV ONE (03:19)
[2024-05-10] MEDS: Famotidine 20 MG/2 ML SDV IVPUSH ONE (03:19)
[2024-05-10] MEDS: Pantoprazole 40 MG Vial IVPUSH ONE (03:19)
[2024-05-10] MEDS: oxyCODONE 5 MG Tab PO PRN (03:20)
[2024-05-10] MEDS: Dexamethasone 4 MG/ML SDV IVPUSH ONE (03:20)
[2024-05-10] MEDS: Potassium Chloride 20 MEQ in Premix Bag 1 BAG IV ONE (03:20)
[2024-05-10 06:57] LABS: BASOPHILS PERCENT AUTO 0.8 % (0.0-1.0); EOSINOPHILS PERCENT AUTO 1.8 % (1.0-3.0); HEMATOCRIT 36.1 % (40.0-54.0); HEMOGLOBIN 12.7 g/dL (14.0-18.0); LYMPHOCYTES PERCENT AUTO 10.1 % (20.5-50.1); MEAN CORPUSCULAR HEMOGLOBIN 34.2 pg (27.0-34.0); MEAN CORPUSCULAR HGB CONC 35.2 g/dL (33.0-35.0); MEAN CORPUSCULAR VOLUME 97.3 fL (80-100); NEUTROPHILS PERCENT AUTO 83.3 % (42.2-75.2); PLATELET COUNT,PLT 34 10^3/uL (150-450); RED BLOOD CELL COUNT 3.71 10^6/uL (4.6-6.2)
[2024-05-10 07:23] LABS: ALBUMIN 3.1 g/dL (3.4-5.0); ANION GAP 16.7 mEq/L (7-13); BILIRUBIN TOTAL 4.1 mg/dL (0.2-1.0); BUN/CREATININE RATIO 6.3 (No establ ref range); CALCIUM 7.7 mg/dL (8.5-10.1); CREATININE 0.79 mg/dL (0.70-1.30); EST CRCL DRUG DOSING (CG) 129.74 mL/min; MAGNESIUM 2.2 mg/dL (1.8-2.4); POTASSIUM,K 3.7 mmol/L (3.5-5.1); PROTEIN TOTAL,TP 6.9 g/dL (6.4-8.2)
[2024-05-10 07:33] LABS: INR 1.5 (0.9-1.2); PROTHROMBIN TIME 15.6 SEC (9.0-12.0)
[2024-05-10 07:34] LABS: A/G RATIO 0.82
[2024-05-10] MEDS: Nicotine 21 MG/24 Hr Patch TRDERM SCH (08:49)
[2024-05-10] MEDS: Furosemide 100 MG in Sodium Chloride 0.9% 90 ML IV SCH (08:50)
[2024-05-10] MEDS: Dexamethasone 6 MG TABLET PO SCH (08:50)
[2024-05-10] MEDS: Famotidine 20 MG Tab PO SCH (08:50)
[2024-05-10] MEDS: Calcium Gluconate 10% 1 GM/10 ML SDV IVPUSH ONE (08:58)
[2024-05-10] MEDS: Sodium Chloride 0.9% 1,000 ML IV SCH (09:07)
[2024-05-10] MEDS: Metoprolol Tartrate 5 MG/5 ML SDV IVPUSH PRN (09:56)
[2024-05-10] MEDS: hydrALAZINE 20 MG/ML SDV IVPUSH PRN (12:02)
[2024-05-10] MEDS: cloNIDine 0.1 MG Tab PO ONE (12:46)
[2024-05-11 06:41] LABS: HEMATOCRIT 34.9 % (40.0-54.0); HEMOGLOBIN 11.8 g/dL (14.0-18.0); LYMPHOCYTES PERCENT AUTO 7.6 % (20.5-50.1); MEAN CORPUSCULAR HEMOGLOBIN 33.7 pg (27.0-34.0); MEAN CORPUSCULAR HGB CONC 33.8 g/dL (33.0-35.0); MEAN CORPUSCULAR VOLUME 99.7 fL (80-100); MONOCYTES PERCENT AUTO 6.5 % (2-8); NEUTROPHILS PERCENT AUTO 85.9 % (42.2-75.2); PLATELET COUNT,PLT 29 10^3/uL (150-450); WHITE BLOOD CELL COUNT,WBC 4.6 10^3/uL (5.0-10.0)
[2024-05-11 07:03] LABS: PROTHROMBIN TIME 19.9 SEC (9.0-12.0)
[2024-05-11 07:05] LABS: ALBUMIN 3.3 g/dL (3.4-5.0); ANION GAP 13.8 mEq/L (7-13); BILIRUBIN TOTAL 4.9 mg/dL (0.2-1.0); BUN/CREATININE RATIO 11.7 (No establ ref range); CALCIUM 8.1 mg/dL (8.5-10.1); CREATININE 0.77 mg/dL (0.70-1.30); EST CRCL DRUG DOSING (CG) 133.11 mL/min; MAGNESIUM 1.6 mg/dL (1.8-2.4); POTASSIUM,K 3.8 mmol/L (3.5-5.1); PROTEIN TOTAL,TP 6.3 g/dL (6.4-8.2)
[2024-05-11 07:06] LABS: A/G RATIO 1.1
[2024-05-11] MEDS: Phytonadione 5 MG Tab PO SCH (08:10)
[2024-05-11] MEDS: cloNIDine 0.1 MG Tab PO ONE (08:10)
[2024-05-11] MEDS: Magnesium Sulfate/Water 2 GM in Premix Bag 1 BAG IV ONE (08:17)
[2024-05-11] MEDS ORDERED: Thiamine 100 MG Tab PO SCH (21:00)
[2024-05-11] MEDS ORDERED: Multivitamin Tab PO SCH (21:00)
[2024-05-11] MEDS ORDERED: Folic Acid 1 MG Tab PO SCH (21:00)
== END 2024-05-11 15:15 | disposition home or self-care (01) | DRG 433 ==
LOC: DL.ED 20:49 → DL.MS 23:43
PROVIDERS: ADMIT Internal Medicine; ATTEND Internal Medicine
DX: K70.31 Alcoholic cirrhosis of liver with ascites (principal); D68.4 Acquired coagulation factor deficiency; E87.1 Hypo-osmolality and hyponatremia; F10.129 Alcohol abuse with intoxication, unspecified; R94.5 Abnormal results of liver function studies; E72.20 Disorder of urea cycle metabolism, unspecified; K76.82 Hepatic encephalopathy; K21.9 Gastro-esophageal reflux disease without esophagitis; K70.40 Alcoholic hepatic failure without coma; F10.229 Alcohol dependence with intoxication, unspecified; F41.9 Anxiety disorder, unspecified; F32.A Depression, unspecified; S05.12XA Contusion of eyeball and orbital tissues, left eye, initial encounter; D64.9 Anemia, unspecified; D69.59 Other secondary thrombocytopenia; E87.6 Hypokalemia; E83.42 Hypomagnesemia; E87.8 Other disorders of electrolyte and fluid balance, not elsewhere classified; E88.09 Other disorders of plasma-protein metabolism, not elsewhere classified; F17.210 Nicotine dependence, cigarettes, uncomplicated; F15.10 Other stimulant abuse, uncomplicated
CPT/HCPCS: 36415; 80053; 80305; 80307; 81001; 82140; 83735; 85025; 85610; 85730; 99285; C1758; 82550; A9270-GY; C9113; J0360; J0612; J1100; J1940; J3360; J3411; J3430; J3475; J3480; J3490; J7030; J7120; J8540; P9047

== ENCOUNTER 2024-05-22 15:01 | Emergency (ER) | payer MEDICAID, OTHER ==
[2024-05-22] MEDS: Iopamidol 612 MG/ML 100 ML Bottle IVPUSH ONE (15:34)
[2024-05-22 15:54] LABS: EOSINOPHILS PERCENT AUTO 2.5 % (1.0-3.0); HEMOGLOBIN 12.4 g/dL (14.0-18.0); MEAN CORPUSCULAR HEMOGLOBIN 33.3 pg (27.0-34.0); MEAN CORPUSCULAR HGB CONC 33.5 g/dL (33.0-35.0); MEAN CORPUSCULAR VOLUME 99.5 fL (80-100); NEUTROPHILS PERCENT AUTO 63.5 % (42.2-75.2); PLATELET COUNT,PLT 70 10^3/uL (150-450); RED BLOOD CELL COUNT 3.72 10^6/uL (4.6-6.2); WHITE BLOOD CELL COUNT,WBC 6.4 10^3/uL (5.0-10.0)
[2024-05-22 16:00] LABS: APPEARANCE,URINE CLEAR (CLEAR); BILIRUBIN,URINE NEGATIVE (NEGATIVE); COLOR,URINE YELLOW (YELLOW); GLUCOSE,URINE NEGATIVE (NEGATIVE); KETONES,URINE NEGATIVE (NEGATIVE); LEUKOCYTE ESTERASE,URINE NEGATIVE (NEGATIVE); NITRITE,URINE NEGATIVE (NEGATIVE); OCCULT BLOOD,URINE NEGATIVE (NEGATIVE); PROTEIN,URINE NEGATIVE (NEGATIVE); UROBILINOGEN,URINE 0.2 mg/dL (0.2-1.0)
[2024-05-22 16:02] LABS: AMPHETAMINES,URINE NEGATIVE (NEGATIVE); BARBITURATES,URINE NEGATIVE (NEGATIVE); BENZODIAZEPINE,URINE POSITIVE (NEGATIVE); MDMA (ECSTASY), URINE NEGATIVE (NEGATIVE); METHADONE,URINE NEGATIVE (NEGATIVE); METHAMPHETAMINES,URINE NEGATIVE (NEGATIVE); OPIATES,URINE NEGATIVE (NEGATIVE); OXYCODONE,URINE NEGATIVE (NEGATIVE); PHENCYCLIDINE,URINE NEGATIVE (NEGATIVE); TCA,URINE NEGATIVE (NEGATIVE)
[2024-05-22 16:03] LABS: INR 1.5 (0.9-1.2); PROTHROMBIN TIME 15.5 SEC (9.0-12.0)
[2024-05-22 16:09] LABS: ANION GAP 15.3 mEq/L (7-13); BILIRUBIN TOTAL 2.7 mg/dL (0.2-1.0); BUN/CREATININE RATIO 7.4 (No establ ref range); CALCIUM 7.6 mg/dL (8.5-10.1); CREATININE 0.68 mg/dL (0.70-1.30); EST CRCL DRUG DOSING (CG) 150.72 mL/min; MAGNESIUM 1.7 mg/dL (1.8-2.4); POTASSIUM,K 3.3 mmol/L (3.5-5.1); PROTEIN TOTAL,TP 6.5 g/dL (6.4-8.2)
[2024-05-22 16:11] LABS: A/G RATIO 0.86
[2024-05-22] MEDS: Thiamine 100 MG in Sodium Chloride 0.9% 100 ML IV ONE (16:11)
[2024-05-22] MEDS: Sodium Chloride 0.9% 1,000 ML IV ONE (16:12)
[2024-05-22] MEDS: levETIRAcetam in NaCl (iso-os) 1,000 MG in Premix Bag 1 BAG IV ONE (16:50)
[2024-05-22] MEDS: Potassium Chloride 20 MEQ in Premix Bag 1 BAG IV ONE (17:00)
[2024-05-22] MEDS: Magnesium Sulfate/Water 2 GM in Premix Bag 1 BAG IV ONE (17:23)
[2024-05-22] MEDS: Diphtheria,Pertussis(Acell),Tetanus Vaccine 0.5 ML Syringe IM ONE (18:36)
== END 2024-05-22 18:33 ==
LOC: DL.ED 15:01
DX: K70.31 Alcoholic cirrhosis of liver with ascites (principal); F17.210 Nicotine dependence, cigarettes, uncomplicated; F10.120 Alcohol abuse with intoxication, uncomplicated; K21.9 Gastro-esophageal reflux disease without esophagitis; Z79.899 Other long term (current) drug therapy; Y90.9 Presence of alcohol in blood, level not specified
CPT/HCPCS: 36415; 70450; 71260; 72125; 73030-LT; 74177; 80053; 80305-QW; 80307; 81003; 82550; 82947; 83690; 83735; 84484; 85025; 85610; 93005; 96365; 96366; 96367; 96368; 96375; 99285-25; J1953; J3411; J3475; J3480; J3490; J7030; Q9967